=== PATIENT | male | born 1945 | race Caucasian/White ===

== ENCOUNTER → 2018-01-20 09:16 | Outpatient (CLI) | payer MEDICARE, SELFPAY ==
[2018-01-20 10:19] LABS: Alanine Aminotransferase 29 U/L (12-78); Albumin Level 3.7 gm/dL (3.4-5.0); Albumin/Globulin Ratio 0.9 (1.1-1.8); Alkaline Phosphatase 116 U/L (46-116); Anion Gap 7.1 mEq/L (5-15); Aspartate Amino Transferase 13 U/L (15-37); Bilirubin,Total 0.6 mg/dL (0.2-1.0); Blood Urea Nitrogen 19 mg/dL (7-18); Carbon Dioxide 30 mmol/L (21.0-32.0); Chloride 102 mmol/L (98-107); Cholesterol 161 mg/dL (140-200); Creatinine,Serum 1.11 mg/dL (0.70-1.30); Estimated Glomerular Filt Rate 65 ml/min (>60); GFR (African American) 79 ML/MIN (>60); Globulin 4.2 gm/dl (1.3-3.2); Glucose 85 mg/dL (74-106); HDL Cholesterol 40 mg/dL (27-67); Iron 75 ug/dl (28-170); LDL Cholesterol 100 mg/dL (0-130); Potassium 4.1 mmoL/L (3.5-5.1); Prostate Specific Ag Screen 4.2 ng/mL (0.0-4.0); Sodium 135 mmol/L (136-145); Total Protein,Serum 7.9 gm/dL (6.4-8.2); Triglycerides 105 mg/dL (30-200); VLDL Cholesterol 21 mg/dL (0-40)
[2018-01-20 10:25] LABS: Basophils # 0.1 K/mm3 (0-0.2); Eosinophils # 0.3 K/mm3 (0.0-0.4); Eosinophils % 4.1 % (0.1-12.0); Hematocrit 49.4 % (42.0-52.0); Hemoglobin 16.6 g/dL (14.1-18.0); Lymphocytes # 1.8 K/mm3 (0.7-4.5); Lymphocytes % 27.2 K/mm3 (10-50); Mean Corpuscular HGB Conc 33.6 g/dL (31.8-35.4); Mean Corpuscular Hemoglobin 29.9 pg (27.0-31.2); Mean Platelet Volume 8.8 fl (7.4-10.4); Monocytes # 0.4 K/mm3 (0.1-1.0); Monocytes % 5.7 % (1.7-9.3); Neutrophils % 61.9 % (37.0-80.0); Platelet Count 245 K/mm3 (142-424); Red Blood Count 5.55 M/mm3 (4.60-6.20); Red Cell Distribution Width 13.2 % (11.5-17.5); White Blood Count 6.5 K/mm3 (4.8-10.8)
[2018-01-21 13:40] LABS: Hemoglobin A1C 7.2 % (0.0-7.0)
== END ==
PROVIDERS: Visit Provider Family Medicine
DX: Z12.5 Encounter for screening for malignant neoplasm of prostate (principal); E11.9 Type 2 diabetes mellitus without complications; E78.5 Hyperlipidemia, unspecified; D64.9 Anemia, unspecified
CPT/HCPCS: 36415; 80053; 80061; 83036; 83540; 83735; 85025; G0103

== ENCOUNTER → 2018-09-18 08:31 | Outpatient (CLI) | payer MEDICARE, SELFPAY ==
[2018-09-18 09:08] LABS: Basophils % 0.7 % (0.1-2.0); Eosinophils # 0.3 K/mm3 (0.0-0.4); Eosinophils % 4.6 % (0.1-12.0); Hematocrit 44.4 % (42.0-52.0); Hemoglobin 14.9 g/dL (14.1-18.0); Lymphocytes # 1.7 K/mm3 (0.7-4.5); Lymphocytes % 28.2 K/mm3 (10-50); Mean Corpuscular HGB Conc 33.6 g/dL (31.8-35.4); Mean Corpuscular Hemoglobin 29.3 pg (27.0-31.2); Mean Corpuscular Volume 87.1 fl (80-94); Mean Platelet Volume 7.9 fl (7.4-10.4); Monocytes # 0.3 K/mm3 (0.1-1.0); Monocytes % 5.6 % (1.7-9.3); Neutrophils # 3.7 K/mm3 (1.8-7.8); Neutrophils % 60.8 % (37.0-80.0); Platelet Count 224 K/mm3 (142-424); Red Cell Distribution Width 13.5 % (11.5-17.5); White Blood Count 6.1 K/mm3 (4.8-10.8)
[2018-09-18 09:14] LABS: Hemoglobin A1C 7.5 % (0.0-7.0)
[2018-09-18 09:59] LABS: Alanine Aminotransferase 23 U/L (12-78); Albumin Level 3.6 gm/dL (3.4-5.0); Alkaline Phosphatase 107 U/L (46-116); Anion Gap 10.2 mEq/L (5-15); Aspartate Amino Transferase 14 U/L (15-37); Bilirubin,Total 0.7 mg/dL (0.2-1.0); Blood Urea Nitrogen 16 mg/dL (7-18); Calcium 9.1 mg/dL (8.5-10.1); Carbon Dioxide 32 mmol/L (21.0-32.0); Chloride 105 mmol/L (98-107); Chol/HDL Ratio 3.8 (1-3.5); Cholesterol 150 mg/dL (140-200); Creatinine,Serum 0.86 mg/dL (0.70-1.30); Estimated Glomerular Filt Rate 87 ml/min (>60); GFR (African American) 105 ML/MIN (>60); Globulin 3.5 gm/dl (1.3-3.2); Glucose 72 mg/dL (74-106); HDL Cholesterol 39 mg/dL (27-67); Iron 82 ug/dl (28-170); LDL Cholesterol 95 mg/dL (0-130); Potassium 4.2 mmoL/L (3.5-5.1); Sodium 143 mmol/L (136-145); Total Protein,Serum 7.1 gm/dL (6.4-8.2); Triglycerides 80 mg/dL (30-200); VLDL Cholesterol 16 mg/dL (0-40)
== END ==
PROVIDERS: Visit Provider Family Medicine
DX: E11.9 Type 2 diabetes mellitus without complications (principal); E78.5 Hyperlipidemia, unspecified; I10 Essential (primary) hypertension; K51.90 Ulcerative colitis, unspecified, without complications
CPT/HCPCS: 36415; 80053; 80061; 83036; 83540; 83735; 85025

== ENCOUNTER → 2020-06-23 08:30 | Outpatient (CLI) | payer MEDICARE, SELFPAY ==
[2020-06-23 08:51] LABS: Basophils # 0.1 K/mm3 (0-0.2); Basophils % 0.8 % (0.1-2.0); Eosinophils # 0.3 K/mm3 (0.0-0.4); Eosinophils % 4.8 % (0.1-12.0); Hematocrit 42.9 % (42.0-52.0); Hemoglobin 15.1 g/dL (14.1-18.0); Lymphocytes # 2.2 K/mm3 (0.7-4.5); Mean Corpuscular HGB Conc 35.2 g/dL (31.8-35.4); Mean Corpuscular Hemoglobin 30.8 pg (27.0-31.2); Mean Corpuscular Volume 87.5 fl (80-94); Mean Platelet Volume 8.4 fl (7.4-10.4); Monocytes # 0.4 K/mm3 (0.1-1.0); Monocytes % 5.7 % (1.7-9.3); Neutrophils % 57.6 % (37.0-80.0); Platelet Count 212 K/mm3 (142-424); Red Cell Distribution Width 13.4 % (11.5-17.5); White Blood Count 6.9 K/mm3 (4.8-10.8)
[2020-06-23 09:15] LABS: Hemoglobin A1C 7.5 % (4.0-6.0)
[2020-06-23 09:36] LABS: Alanine Aminotransferase 17 U/L (12-78); Albumin Level 3.9 g/dl (3.5-5.0); Albumin/Globulin Ratio 1.2 (1.1-1.8); Alkaline Phosphatase 105 U/L (38-126); Anion Gap 15.1 mEq/L (5-15); Aspartate Amino Transferase 21 U/L (17-59); Bilirubin,Total 0.9 mg/dl (0.2-1.3); Blood Urea Nitrogen 15 mg/dl (9-20); Calcium 9.4 mg/dl (8.4-10.2); Carbon Dioxide 26 mmol/L (22.0-30.0); Chloride 102 mmol/L (98-107); Chol/HDL Ratio 4.5 (1-3.5); Cholesterol 168 mg/dl (140-200); Estimated Glomerular Filt Rate 82 ml/min (>60); GFR (African American) 99 ML/MIN (>60); Globulin 3.2 g/dL (1.3-3.2); Glucose 86 mg/dl (74-100); HDL Cholesterol 37 mg/dl (40-60); Iron 79 ug/dL (49-181); Magnesium 1.9 mg/dl (1.6-2.3); Potassium 4.1 mmoL/L (3.5-5.1); Sodium 139 mmol/L (136-145); Total Protein,Serum 7.1 g/dl (6.3-8.2); Triglycerides 122 mg/dl (30-150); VLDL Cholesterol 24 mg/dL (0-40)
[2020-06-23 10:06] LABS: Prostate Specific Ag Screen 4.2 ng/ml (0.0-4.0)
== END ==
PROVIDERS: Visit Provider Family Medicine
DX: D64.9 Anemia, unspecified (principal); I10 Essential (primary) hypertension; E78.5 Hyperlipidemia, unspecified; E11.9 Type 2 diabetes mellitus without complications; Z12.5 Encounter for screening for malignant neoplasm of prostate; Z79.4 Long term (current) use of insulin
CPT/HCPCS: 36415; 80053; 80061; 83036; 83540; 83735; 85025; G0103

== ENCOUNTER → 2020-08-22 10:47 | Outpatient (POV) | payer MEDICARE, SELFPAY ==
[2020-08-22 13:14] LABS: Basophils # 0.1 K/mm3 (0-0.2); Eosinophils # 0.2 K/mm3 (0.0-0.4); Eosinophils % 2.8 % (0.1-12.0); Hematocrit 47.9 % (42.0-52.0); Hemoglobin 16.5 g/dL (14.1-18.0); Lymphocytes % 28.7 % (10-50); Mean Corpuscular HGB Conc 34.5 g/dL (31.8-35.4); Mean Corpuscular Hemoglobin 30.6 pg (27.0-31.2); Mean Corpuscular Volume 88.7 fl (80-94); Mean Platelet Volume 8.4 fl (7.4-10.4); Monocytes # 0.5 K/mm3 (0.1-1.0); Monocytes % 6.9 % (1.7-9.3); Neutrophils # 4.3 K/mm3 (1.8-7.8); Neutrophils % 60.5 % (37.0-80.0); Platelet Count 237 K/mm3 (142-424); Red Cell Distribution Width 13.4 % (11.5-17.5)
[2020-08-22 13:36] LABS: Erythrocyte Sedimentation Rate 11 mm/hr (0-20)
[2020-08-22 14:38] LABS: Alanine Aminotransferase 24 U/L (12-78); Albumin Level 4.5 g/dl (3.5-5.0); Albumin/Globulin Ratio 1.4 (1.1-1.8); Alkaline Phosphatase 114 U/L (38-126); Anion Gap 13.8 mEq/L (5-15); Aspartate Amino Transferase 24 U/L (17-59); Bilirubin,Total 1.1 mg/dl (0.2-1.3); Blood Urea Nitrogen 14 mg/dl (9-20); Calcium 10.2 mg/dl (8.4-10.2); Carbon Dioxide 30 mmol/L (22.0-30.0); Chloride 102 mmol/L (98-107); Estimated Glomerular Filt Rate 82 ml/min (>60); GFR (African American) 99 ML/MIN (>60); Globulin 3.3 g/dL (1.3-3.2); Glucose 64 mg/dl (74-100); Potassium 4.8 mmoL/L (3.5-5.1); Sodium 141 mmol/L (136-145); Total Protein,Serum 7.8 g/dl (6.3-8.2)
[2020-08-22 14:44] LABS: C-Reactive Protein 3.2 mg/L (0-4)
[2020-08-22 14:55] LABS: 25-OH Vitamin D, Total 32.3 ng/mL (30-100)
[2020-08-22 15:29] LABS: Vitamin B12 280 pg/mL (239-931)
[2020-08-22 17:07] LABS: Iron 87 ug/dL (49-181)
[2020-08-22 17:16] LABS: Total Iron Binding Capacity 360 ug/dL (261-462)
[2020-08-22 17:43] LABS: Ferritin 101 ng/ml (17.9-464)
== END ==
PROVIDERS: Visit Provider Nurse Practitioner Family
DX: K51.90 Ulcerative colitis, unspecified, without complications (principal)
CPT/HCPCS: 36415; 80053; 82306; 82607; 82728; 83540; 83550; 85025; 85651; 86140

== ENCOUNTER → 2020-09-17 07:45 | Outpatient (CLI) | payer MEDICARE, SELFPAY ==
[2020-09-17 09:13] LABS: Coronavirus 19 IgG Antibody Negative (Negative); Coronavirus 19 IgM Antibody Negative (Negative)
== END ==
PROVIDERS: Visit Provider Internal Medicine Gastroenterology
DX: Z01.818 Encounter for other preprocedural examination (principal)
CPT/HCPCS: 36415; 86328

== ENCOUNTER 2020-09-19 08:48 | Day surgery (SDC) | payer MEDICARE, SELFPAY ==
[2020-09-15 10:24] VITALS: BMI 31.1
[2020-09-19 09:08] VITALS: BP 206/94; PULSE 80; RESP 18; TEMP 36.4; O2SAT 97
[2020-09-19 09:21] LABS: POC Glucose,Bedside 159 (70-110)
--- NOTE | 2020-09-19 09:37 | P.PN_ITS ---
[facility] Anesthesia Checklist - Patient Identification Patient Identification: Arm Band - Structural Data Admitted From: Home Planned Operative Procedure/s: flexible sigmoidoscopy Consent for Planned Operative Procedure(s) Verified: Yes Verified Documents: Surgical Consent, History and Physical - NPO Status Verified Time NPO: 00:00 - Additional verifications Anesthesia Reactions: No - Airway Assessment C-Spine Mobility Assessed: Yes (mp2) TMJ Mobility Assessed: Yes Dentition: Good Dentition - Neurological Assessment Level of Consciousness: Awake, Alert - Anesthesia Plan Anesthesia Risk discussed: Yes Anesthesia Plan: Verified ASA Class: III Anesthesia Type: MAC [facility] History I have reviewed the patient's past medical history: Yes Medical History: Reports:: Atrial Fibrillation, Cancer (prostate), Chronic Obstructive Pulmonary Disease (COPD), Diabetes Mellitus Type 2 (insulin dependant), Hypertension, Lung Disease (copd) Denies:: Diabetes Mellitus Type 1, Internal Pacemaker, MRSA, Seizures *Have you ever received a pneumonia vaccine?: Yes *Have you received a flu vaccine this season?: No Anesthesia experience/problems:: nac Laterality Cases: Bilateral: Cataract Other Surgeries: Yes: Colonoscopy, Other (Hemorrhoidectomy). No: Pacemaker Amputation: No Fractures: No - *Social History Last grade of school completed: Advanced degree Alcohol Intake: never Substance Use Type: denies use *Occupational Status:: retired Housing: house Household Members: spouse *Travel in the last 8 weeks: None Family Hx:: No significant family history
--- NOTE | 2020-09-19 09:57 | P.PCN_ITS ---
[facility] Procedure Note Procedure Note:: Flexible Sigmoidoscopy Procedure Report: Sigmoidoscopy with cold biopsies Endoscopist: Damian Rosas II, MD Referring physician: Nicholas Mathews MD Date of Procedure: September 19, 2020 Equipment: Olympus 180 variable stiffness pediatric colonoscope Sedation: MAC sedation Indication: Mr. Owusu is a 75-year-old gentleman with a history of ulcerative proctitis. He did undergo colonoscopy with la 2-1/2 years ago (February 2018) and was found to have moderate ulcerative proctitis involving the distal 3 cm of rectum. He used Canasa suppositories for about a month. The patient was on 1 capsule of Asacol daily for years. He took MiraLAX but stopped Konsyl. He was seen by Christine BRUNO on August 22, 2020. He was placed back on Konsyl and his symptoms have improved. He did have a hemorrhoidectomy in 2013 (Dr. Bennie Melton/colorectal surgery). The patient also had prostate biopsies and states that this resulted in a change in stool caliber. The patient has had some bloating and upper abdominal crampy discomfort in the right upper quadrant twice weekly. His bleeding and bowel function has improved with the addition of Konsyl bulk. Procedure: Prior to the procedure, a history and physical exam was performed, and patient's medications and allergies were reviewed. The risks, benefits and alternatives of the sedation and procedure were discussed with the patient. All questions were answered and informed consent was obtained. The patient was brought to the procedure room. Patient identification and proposed procedure were verified by the physician and the nurse. The patient was placed in a left lateral decubitus position and the scope was passed under direct vision. Throughout the procedure, the patient's blood pressure, pulse, and oxygen saturations were monitored continuously. The colonoscopy was accomplished without difficulty. The patient tolerated the procedure well. Findings: On digital rectal examination there was normal rectal tone. There were small tags. The scope was then inserted through the anal canal to the rectum and advanced to 30 cm. The preparation more proximally was poor with solid stools. Upon withdrawal there was evidence of mild chronic ulcerative proctitis involving the distal 3 to 4 cm of rectum. Cold biopsies were obtained. Impression: 1. Mild chronic ulcerative proctitis Plan: I will follow-up the biopsies. The patient has clinically improved with MiraLAX plus Konsyl. If his abdominal pain and bowel function remain persistent, I would recommend repeat colonoscopy. He did have 5 adenomatous polyps (serrated adenomas) in February 2018 and would be due for full screening/surveillance colonoscopy again in February 2021.
[2020-09-19 09:58] VITALS: BP 120/61; PULSE 61; RESP 12; TEMP 36.4; O2SAT 95
[2020-09-19 10:08] VITALS: BP 130/72; PULSE 68; RESP 16; O2SAT 93
[2020-09-19 10:18] VITALS: BP 144/77; PULSE 62; RESP 16; O2SAT 95
[2020-09-19 10:28] VITALS: BP 164/87; PULSE 63; RESP 16; TEMP 36.4; O2SAT 99
== END 2020-09-19 10:42 | disposition home or self-care (01) ==
LOC: OUTP 08:50
PROVIDERS: PCP Family Medicine; Visit Provider Internal Medicine Gastroenterology
PROC: 0DJD8ZZ Inspection of Lower Intestinal Tract, Via Natural or Artificial Opening Endoscopic (ICD-10-PCS; CPT 45330; principal; 2020-09-19 10:00)
DX: K51.20 Ulcerative (chronic) proctitis without complications; K62.1 Rectal polyp; Z87.19 Personal history of other diseases of the digestive system; I48.91 Unspecified atrial fibrillation; Z85.46 Personal history of malignant neoplasm of prostate; J44.9 Chronic obstructive pulmonary disease, unspecified; E11.9 Type 2 diabetes mellitus without complications; I10 Essential (primary) hypertension; Z79.4 Long term (current) use of insulin
CPT/HCPCS: 45331; 82962; 88305

== ENCOUNTER → 2021-03-24 14:10 | Outpatient (CLI) | payer MEDICARE, SELFPAY | PROVIDERS: Visit Provider Internal Medicine Gastroenterology | DX: Z01.812 Encounter for preprocedural laboratory examination (principal); Z20.822 Contact with and (suspected) exposure to COVID-19; Z12.11 Encounter for screening for malignant neoplasm of colon | CPT/HCPCS: U0003 ==

== ENCOUNTER 2021-03-27 07:17 | Day surgery (SDC) | payer MEDICARE, SELFPAY ==
[2021-03-21 13:42] VITALS: BMI 31.6
[2021-03-27] VITALS (8 sets, daily range): BP systolic 119–190; BP diastolic 62–92; PULSE 66–76; RESP 18–20; TEMP 36.4–36.6; O2SAT 95–98
--- NOTE | 2021-03-27 08:32 | P.PN_ITS ---
[facility] Anesthesia Checklist - Patient Identification Patient Identification: Arm Band - Structural Data Admitted From: Home Planned Operative Procedure/s: Colonoscopy Consent for Planned Operative Procedure(s) Verified: Yes - NPO Status Verified Time NPO: 00:00 - Additional verifications Anesthesia Reactions: No - Airway Assessment C-Spine Mobility Assessed: Yes TMJ Mobility Assessed: Yes Dentition: Good Dentition - Neurological Assessment Level of Consciousness: Awake, Alert Hx Seizures: No Numbness or tingling in extremities: No - Anesthesia Plan Anesthesia Risk discussed: Yes Anesthesia Plan: Verified ASA Class: III Anesthesia Type: MAC [facility] History I have reviewed the patient's past medical history: Yes Medical History: Reports:: Atrial Fibrillation, Cancer (prostate), Chronic Obstructive Pulmonary Disease (COPD), Diabetes Mellitus Type 2, Hyperlipidemia, Hypertension, Lung Disease (copd) Denies:: Diabetes Mellitus Type 1, Internal Pacemaker, MRSA, Seizures *Have you ever received a pneumonia vaccine?: Yes *Have you received a flu vaccine this season?: Yes Anesthesia experience/problems:: None Other Surgeries: Yes: Colonoscopy, Other (Hemorrhoidectomy). No: Pacemaker Amputation: No Fractures: No - *Social History Smoking Status: Never smoker Alcohol Intake: never Substance Use Type: denies use *Occupational Status:: retired Housing: house Household Members: spouse *Travel in the last 8 weeks: None Family Hx:: Unable to obtain
--- NOTE | 2021-03-27 08:41 | HMH.PROC ---
[facility] Procedure Note Procedure Note:: Colonoscopy Procedure Report: Colonoscopy Endoscopist: Damian Rosas II, MD Referring physician: Nicholas Mathews MD Date of Procedure: March 27, 2021 Equipment: Olympus 190 variable stiffness pediatric colonoscope Sedation: MAC sedation Indication: Mr. Owusu is a 75-year-old gentleman who is here for follow-up surveillance colonoscopy. He does have a history of ulcerative colitis diagnosed by me 18 to 20 years ago. His last colonoscopy with ct in February 2018 showed moderate ulcerative proctitis involving the distal 3 cm of rectum. He also has obstipation and does take MiraLAX plus Konsyl mixed together daily. He did have a hemorrhoidectomy in 2013 (Dr. Bennie Melton?colorectal surgery). He had a sigmoidoscopy in September 2020 showing mild chronic ulcerative proctitis of the distal 3 to 4 cm. Procedure: Prior to the procedure, a history and physical exam was performed, and patient's medications and allergies were reviewed. The risks, benefits and alternatives of the sedation and procedure were discussed with the patient. All questions were answered and informed consent was obtained. The patient was brought to the procedure room. Patient identification and proposed procedure were verified by the physician and the nurse. The patient was placed in a left lateral decubitus position and the scope was passed under direct vision. Throughout the procedure, the patient's blood pressure, pulse, and oxygen saturations were monitored continuously. The colonoscopy was accomplished without difficulty. The patient tolerated the procedure well. Findings: On digital rectal examination there was normal to increased rectal tone. There were small external tags. There were no external hemorrhoids. The prostate was 2-3+ with a firm nodule in the midline margin. The colonoscope was introduced through the anal canal to the rectum and advanced to the mid ascending colon. The preparation was fairly poor with a marked amount of yellowish-brown liquid stool and some residue. Upon withdrawal, approximately 75% of the colonic mucosa could be visualized. The remaining ascending, transverse, descending and sigmoid colon were normal with no polyps or other evidence of colitis or diverticulosis. There were no mucosal abnormalities identified. Upon retroflexion within the rectum, there was complete remission of the proctitis and there were grade 1-2 internal hemorrhoids.The preparation was fair to poor throughout with [place] Preparation Score of 5 out of 9. The cecal time was 10 minutes. Impression: 1. Normal colonoscopy (to mid ascending colon) with complete remission of the ulcerative proctitis 2. Fair to poor bowel preparation 3. Prostate nodule Plan: I will discuss the findings with the patient and family. We will need to determine whether further surveillance is warranted based upon age and general health. I would encourage continuation of the fiber bowel regimen (combined MiraLAX plus Konsyl mixed together p.o. every morning. I am not convinced that he will require any further maintenance mesalamine or Canasa.
--- NOTE | 2021-03-27 09:54 | SUR.PHASEII ---
0955- Dr Rosas at bedside talking to pt and
--- NOTE | 2021-03-27 09:55 | SUR.PHASEII ---
0955- Lab at bedside drawing PSA lab
[2021-03-27 10:42] LABS: POC Glucose,Bedside 138 (70-110)
== END 2021-03-27 10:00 | disposition home or self-care (01) ==
LOC: OUTP 07:18
PROVIDERS: PCP Family Medicine; Visit Provider Internal Medicine Gastroenterology
PROC: 0DJD8ZZ Inspection of Lower Intestinal Tract, Via Natural or Artificial Opening Endoscopic (ICD-10-PCS; CPT 45378; principal; 2021-03-27 08:30)
DX: Z12.11 Encounter for screening for malignant neoplasm of colon (principal); Z87.19 Personal history of other diseases of the digestive system; N40.0 Benign prostatic hyperplasia without lower urinary tract symptoms; Z85.46 Personal history of malignant neoplasm of prostate; I48.91 Unspecified atrial fibrillation; J44.9 Chronic obstructive pulmonary disease, unspecified; E11.9 Type 2 diabetes mellitus without complications; E78.5 Hyperlipidemia, unspecified; I10 Essential (primary) hypertension; Z79.4 Long term (current) use of insulin; Z79.899 Other long term (current) drug therapy
CPT/HCPCS: G0105; 36415; 82962; 84153

== ENCOUNTER → 2021-09-21 08:19 | Outpatient (CLI) | payer MEDICARE, SELFPAY ==
[2021-09-21 09:53] LABS: Thyroid Stimulating Hormone 3.75 uIU/mL (0.465-4.68)
[2021-09-22 12:16] LABS: Rapid Plasma Reagin Ab Titer Non Reactive (NonRea<1:1)
[2021-12-19 17:00] LABS: Antinuclear Antibodies (ANA) N
== END ==
PROVIDERS: Visit Provider Specialist
DX: R13.10 Dysphagia, unspecified (principal); G93.40 Encephalopathy, unspecified; R41.3 Other amnesia
CPT/HCPCS: 36415; 84439; 84443; 86038; 86225; 86235; 86592

== ENCOUNTER → 2021-09-26 12:57 | Outpatient (CLI) | payer MEDICARE, SELFPAY ==
--- NOTE | 2021-09-26 12:58 | FL_ITS ---
PROCEDURE: FL BARIUM SWALLOW MODIFIED CLINICAL INDICATION: dyphagia COMPARISON: No exams were available for comparison TECHNIQUE: Patient administered varying consistencies of barium contrast, while viewed in lateral position under real-time fluoroscopy with cine recording. FLUOROSCOPY TIME:1.22 minutes The study was performed in conjunction with speech pathologist. Please see that report & recommendations. FINDINGS: Patient was given varying consistencies of barium. Initially there was no aspiration or penetration with thin liquids. The patient then swallowed a large bolus of thin liquids were there was mild tracheal aspiration with cough reflex noted. Repeat swallow performed with chin tuck showing no evidence of aspiration. Other consistencies swallowed without difficulty.. IMPRESSION: Mild aspiration with large volume of thin liquids which improved with chin tuck technique. Please see speech pathologist report and recommendations. Dictated by: Man Rothman MD 09/27/2021 10:30 Man Rothman MD in OV 09/27/2021 10:30
--- NOTE | 2021-09-26 13:45 | HMH.SLMBS2 ---
Speech & Language Evaluation Speech/Language Mod Barium Swallow Start: 09/26/21 13:31 Freq: once Status: Complete Protocol: Document 09/26/21 13:31 VLAD (Rec: 09/26/21 13:45 VLAD [id number]) General Information General Current Food Consistancy Regular,Thin Liquids Dentition Good Dentition Oxygen Status Room Air Patient Orientation Person,Place Ability to Follow Directions Excellent Communication Ability No Impairment MBS Recommendations Diet Dietary Recommendations Regular,Thin Liquids Treatment/Strategies Treatment Recommendation Compens. Strategy Educat. Strategy/Precaution Recommend Sitting Upright (90 deg),Chin Tuck,Small Bites and Sips, Alternate Liquids/Solids Mod Barium Swallow Impressions Summary and Impressions Oral Phase Impression No Impairment (WFL) Oral Phase Summary Mr. Owusu was given the following consistencies: thins via straw and open cup, pudding, regular, and pill with thin wash. No oral phase impairments noted during evaluation. Pharyngeal Phase Impression Mild Impairment Pharyngeal Phase Summary Mr. Owusu did have a moment of small aspiration on an extremely large bolus of thin liquids. Implemented a chin tuck compensatory strategy along with small sips which improved the swallow. At this time, it is recommended he remain on current diet of regular diet with thin liquids using compensatory strategies of chin tuck and small bites/ small sips. Evaluation results reviewed with . Therapy is not warranted at this time. Speech/Language MBS Assessment/Goals/Plan Assessment Date of Evaluation: 09/26/21 Evaluation Type Initial Certification Assessment/Problems Dysphagia Does Patient Qualify for Service No Qualify/Failure Comment Compensatory strategies put in place. Recommendations PHYSICIAN CERTIFICATION: The specified therapy services are required, authorized, and reviewed every 30 days. SL Swallow Guidelines Standard Aspiration Prec. Dysphagia Swallow Precautions/Strategies Sitting Upright (90 deg),Chin Tuck,Small Bites and Sips,
== END ==
PROVIDERS: PCP Family Medicine; Visit Provider Specialist
DX: G47.33 Obstructive sleep apnea (adult) (pediatric) (principal); R13.10 Dysphagia, unspecified; R25.1 Tremor, unspecified; R41.3 Other amnesia
CPT/HCPCS: 70371; 92611

== ENCOUNTER → 2021-09-28 15:59 | Outpatient (CLI) | payer MEDICARE, SELFPAY ==
--- NOTE | 2021-09-28 15:59 | MR_ITS ---
PROCEDURE INFORMATION: Exam: MR Head Without Contrast Exam date and time: 09/28/2021 3:59 PM Age: 76 years old Clinical indication: Pain; Headache; Additional info: Memory loss, tremor. Tremor, memory loss 1.5yrs. No injury or trauma. No prior. TECHNIQUE: Imaging protocol: MR of the head without contrast. COMPARISON: RF FL BARIUM SWALLOW MODIFIED 09/26/2021 1:20 PM FINDINGS: Brain: No bleed, mass, or shift of structures. Basilar cisterns are normal. No diffusion restricted segments. Pre-pontine region, suprasellar region, and cerebellar angles are normal. No acute intracranial process. Brain is atrophic. Altered/abnormal areas of signal intensity within the periventricular white matter likely the radiographic manifestation of small vessel ischemic disease. Cerebral ventricles: Normal. No ventriculomegaly. Pituitary gland and sella: Sella normal. Bones/joints: Clivus normal. Calvarium is normal marrow signal. Paranasal sinuses: Normal as visualized. No acute sinusitis. Mastoid air cells: Normal as visualized. No mastoid effusion. Orbital cavity: Unremarkable. Soft tissues: Soft tissues are unremarkable Other findings: Diploe is normal. Tectum normal. IMPRESSION: 1. No acute intracranial process. 2. Brain is atrophic. 3. Altered/abnormal areas of signal intensity within the periventricular white matter likely the radiographic manifestation of small vessel ischemic disease.
== END ==
PROVIDERS: PCP Family Medicine; Visit Provider Specialist
DX: G47.33 Obstructive sleep apnea (adult) (pediatric) (principal); R13.10 Dysphagia, unspecified; R25.1 Tremor, unspecified; R41.3 Other amnesia
CPT/HCPCS: 70551

== ENCOUNTER → 2021-10-05 14:27 | Outpatient (CLI) | payer MEDICARE, SELFPAY | PROVIDERS: PCP Family Medicine; Visit Provider Specialist | DX: G47.33 Obstructive sleep apnea (adult) (pediatric) (principal); R13.10 Dysphagia, unspecified; R25.1 Tremor, unspecified; R41.3 Other amnesia | CPT/HCPCS: 94762 ==

== ENCOUNTER → 2022-04-11 08:26 | Outpatient (CLI) | payer MEDICARE, SELFPAY ==
[2022-04-11 09:26] LABS: Alanine Aminotransferase 7 U/L (12-78); Albumin Level 3.8 g/dl (3.5-5.0); Albumin/Globulin Ratio 1.4 (1.1-1.8); Alkaline Phosphatase 102 U/L (38-126); Anion Gap 11.4 mEq/L (5-15); Aspartate Amino Transferase 17 U/L (17-59); Bilirubin,Total 0.4 mg/dl (0.2-1.3); Blood Urea Nitrogen 21 mg/dl (9-20); Calcium 9.7 mg/dl (8.4-10.2); Carbon Dioxide 29 mmol/L (22.0-30.0); Chloride 102 mmol/L (98-107); Chol/HDL Ratio 2.4 (1-3.5); Cholesterol 120 mg/dl (140-200); Estimated Glomerular Filt Rate 94 ml/min (>60); GFR (African American) 113 ML/MIN (>60); Globulin 2.8 g/dL (1.3-3.2); Glucose 147 mg/dl (74-100); HDL Cholesterol 49 mg/dl (40-60); Magnesium 1.7 mg/dl (1.6-2.3); Potassium 4.4 mmoL/L (3.5-5.1); Sodium 138 mmol/L (136-145); Total Protein,Serum 6.6 g/dl (6.3-8.2); Triglycerides 39 mg/dl (30-150); VLDL Cholesterol 8 mg/dL (0-40)
[2022-04-11 09:36] LABS: Direct LDL Cholesterol 57.61 mg/dL (100-129)
[2022-04-11 09:56] LABS: Prostate Specific Ag Screen < 0.1 ng/ml (0.0-4.0)
[2022-04-11 11:08] LABS: Hemoglobin A1C 9.2 % (4.0-6.0)
== END ==
PROVIDERS: Visit Provider Family Medicine
DX: E11.9 Type 2 diabetes mellitus without complications (principal); E78.5 Hyperlipidemia, unspecified; E53.8 Deficiency of other specified B group vitamins; Z12.5 Encounter for screening for malignant neoplasm of prostate; Z79.4 Long term (current) use of insulin
CPT/HCPCS: 36415; 80053; 80061; 83036; 83735; G0103

== ENCOUNTER 2022-07-04 09:00 | Outpatient (RCR) | payer MEDICARE, SELFPAY ==
--- NOTE | 2022-06-06 09:07 | HMH.PTOPEV ---
PT Outpatient Evaluation Rehab PT Outpatient Evaluation Start: 06/06/22 08:01 Freq: Status: Active Protocol: Document 06/06/22 08:44 ERMA (Rec: 06/06/22 09:06 ERMA [id number]) Electronically Signed By Shekhar Hobbs, PRITESH 06/06/22 08:44 Outpatient Therapy Subjective History Subjective History This is the initial Physical Therapy evaluation for Johnny Scruggs. Pt is a 76 y/o male referred to PT for c/o balance disorder. Pt has been diagnosed with Lewy-body disorder, Parkinsonian disorder and small vessel ischemic disorder. Pt had radical prstectomy in 2020 and had severe difficulty and confusion after surgery. Pt had HHPT and HHOT to help improve function. Pt reports to therapy with complaints of gait disturbances and balance issues. Chief Complaint Other Symptom Type Other Symptoms Relieved By Nothing Symptoms Aggravated By Bending/Stooping,Physical Activity,Walking Prior Functional Limitations None Current Functional Limitations Housework,Recreation Activity, Walking,Stairs,Balance,Bending /Stooping Symptom Description Constant and Continuous Balance Eval Hx of Falls Hx Falls Yes: last year Number in last 6 months 4 Gait/Posture Asssessment General Gait Observation Ataxic Gait,Shuffling Step, Decrease Stride Lngth (R), Decrease Stride Lngth (L) Assistive Devices None / NA Level of Transfer Assist Standby Assistance,Assistance x1 Hip Observation in Gait Swing Decreased Flexion Hip Observation in Gait Stance Externally Rotated Ankle/Foot Observation in Gait Swing Decreased Foot Clearance Ankle/Foot Observation in Gait Stance Pronated,Flatfoot Contact Hip Posture Standing Position (L) Flexed,(R) Flexed,(L) Externally Rotated,(R) Externally Rotated Body Alignment Posture Rigid,Leaning,Thoracic Kyphosis,Forward Head Timed Up and Go Test 1. Is the Timed Up and Go test result > yes or = to 12 seconds? [place] Feet Together/Eyes open/Stable Surface pass Feet Together/Eyes Closed/Stable Surface pass Feet Together/Eyes op
== END 2022-07-04 09:05 | disposition home or self-care (01) ==
LOC: PT 09:00
PROVIDERS: PCP Family Medicine; Visit Provider Family Medicine
DX: R26.89 Other abnormalities of gait and mobility (principal); G20 Parkinson's disease
CPT/HCPCS: 97110; 97112; 97163; 97530

== ENCOUNTER 2022-07-04 10:00 | Outpatient (RCR) | payer MEDICARE, SELFPAY ==
--- NOTE | 2022-06-18 11:06 | HMH.SLAPHASI ---
Speech & Language Evaluation Speech/Language Aphasia Evaluation Start: 06/18/22 10:05 Freq: once Status: Complete Protocol: Document 06/18/22 10:05 SYDNIE (Rec: 06/18/22 11:06 SYDNIE [id number]) Aphasia Assessment/Goals/Plan Assessment Date of Evaluation: 06/18/22 Evaluation Type Initial Certification Assessment/Problems Lewy Bodies Dementia and Parkinson's Disease Does Patient Qualify for Service Yes Qualify/Failure Comment Based on preliminary cognitive /linguistic assessment pt qualifies for skilled ST services at this time. Plan Pt will be seen # times/week 2 for # weeks 12 Anticipate reaching STG in # weeks 8 Anticipate reaching LTG in # weeks 12 Pt/Guardian verbally ack understanding Yes of dx/prognosis/goals Pt/Guardian verbally ack understanding Yes of/consent to tx prog G -code Required No STG-Attending/Orientation/Memory Delayed Recall 80 Attention/Concentration 80 Memory Recall 80 STG-Comparative/Linguistic Skills Thought Organization 80 Categorization Ability 80 Aquatics Assistant Department Head Goals Increase cognitive skills to communicate Yes w/family & friends Education Instructions provided CLARIFYING PLANT OPERATOR reviewed the results of this preliminary assessment and recommendation for therapy with Mr. Owusu and his . Pt/Caregiver Able to Recall Information Able to recall/restate Reinforcement needed No Speech & Language HPI History Present Illness Description of Patient Problem dementia per MD order. Pt has a diagnosis of Lewy Bodies Dementia and Parkinson's disease. Pt/Caregiver Concerns Pt and his expressed concern for soft speech, inability to express wants and needs (word finding), short and long-term memory difficulties, some difficulty with reading/writing, hearing, drooling at meals, increased mealtime, and choking. Symptom Onset Date 08/18/21 Rehab Services Assessed Speech therapy Is this evaluation r/t stroke? No Language Eek Lang/Spoken in Home Icelandic Accent Affect Communication? No Education/Learning/Family Last School Grade Completed College Learning Method Preference One-on-One Instruction Therapy History O
== END 2022-07-04 11:00 | disposition home or self-care (01) ==
LOC: ST 10:00
PROVIDERS: PCP Family Medicine; Visit Provider Nurse Practitioner Psychiatric/Mental Health
DX: G31.83 Neurocognitive disorder with Lewy bodies (principal); F80.89 Other developmental disorders of speech and language
CPT/HCPCS: 92523; 97129; 97130

== ENCOUNTER 2022-07-07 20:38 | Inpatient (IN) | payer MEDICARE, SELFPAY ==
[2022-07-07 20:39] VITALS: BP 207/97; PULSE 92; RESP 16; TEMP 37.5; O2SAT 98; BMI 26.9
[2022-07-07 20:49] VITALS: BMI 26.9
--- NOTE | 2022-07-07 20:50 | XR_ITS ---
PROCEDURE INFORMATION: Exam: XR Chest Exam date and time: 07/07/22 09:10 PM Age: 77 years old Clinical indication: Fever TECHNIQUE: Imaging protocol: Radiologic exam of the chest. Views: 1 view. COMPARISON: RF FL BARIUM SWALLOW MODIFIED 09/26/21 01:20 PM FINDINGS: Lungs: Unremarkable. No consolidation. Pleural spaces: Unremarkable. No pleural effusion. No pneumothorax. Heart/Mediastinum: Unremarkable. No cardiomegaly. Bones/joints: Unremarkable. IMPRESSION: No acute findings.
[2022-07-07 21:05] LABS: Basophils # 0.1 K/mm3 (0-0.2); Basophils % 0.9 % (0.1-2.0); Eosinophils # 0.1 K/mm3 (0.0-0.4); Eosinophils % 1.6 % (0.1-12.0); Hematocrit 41.3 % (42.0-52.0); Hemoglobin 13.7 g/dL (14.1-18.0); Influenza A, PCR Not Detected (NotDetected); Influenza B, PCR Not Detected (NotDetected); Lymphocytes # 0.7 K/mm3 (0.7-4.5); Lymphocytes % 10.2 % (10-50); Mean Corpuscular Volume 90.8 fl (80-94); Mean Platelet Volume 8.9 fl (7.4-10.4); Monocytes # 0.5 K/mm3 (0.1-1.0); Neutrophils # 5.6 K/mm3 (1.8-7.8); Neutrophils % 80.3 % (37.0-80.0); Platelet Count 227 K/mm3 (142-424); Red Blood Count 4.55 M/mm3 (4.60-6.20); Red Cell Distribution Width 13.7 % (11.5-17.5)
[2022-07-07 21:14] LABS: Alanine Aminotransferase 8 U/L (12-78); Albumin Level 4.2 g/dl (3.5-5.0); Albumin/Globulin Ratio 1.3 (1.1-1.8); Alkaline Phosphatase 131 U/L (38-126); Anion Gap 9.2 mEq/L (5-15); Aspartate Amino Transferase 21 U/L (17-59); Bilirubin,Total 0.8 mg/dl (0.2-1.3); Blood Urea Nitrogen 17 mg/dl (9-20); Carbon Dioxide 28 mmol/L (22.0-30.0); Chloride 102 mmol/L (98-107); Creatinine Clearance Estimated 78 mL/min (50-200); Estimated Glomerular Filt Rate 93 ml/min (>60); GFR (African American) 113 ML/MIN (>60); Globulin 3.2 g/dL (1.3-3.2); Glucose 151 mg/dl (74-100); Lactic Acid 1.1 mmol/L (0.7-2.1); Potassium 4.2 mmoL/L (3.5-5.1); Sodium 135 mmol/L (136-145); Total Protein,Serum 7.4 g/dl (6.3-8.2)
[2022-07-07 21:19] LABS: C-Reactive Protein 14.8 mg/L (0-4)
[2022-07-07 21:30] LABS: Coronavirus 19, PCR Detected (NotDetected); Erythrocyte Sedimentation Rate 20 mm/hr (0-20)
[2022-07-07 21:32] LABS: Procalcitonin 0.102 ng/mL (0.0-2.0)
--- NOTE | 2022-07-07 21:53 | HMH.EDAMS ---
ED Disposition Clinical Impression: Acute delirium, COVID-19, SIRS (systemic inflammatory response syndrome) Disposition: Admitted As Inpatient Condition on Discharge: Fair Referrals: Garret Mathews MD [Primary Care Provider] - - Critical Care Critical Care Time: No Attestation: On 07/07/22, the high probability of a clinically significant, sudden or life threatening deterioration of the following system(s) required my full and direct attention, intervention and personal management. The time I documented below is in addition to time spent performing reported procedures but includes the following listed in this critical care notation. Medical Decision Making - Medical Records Medical records reviewed: Yes: I reviewed the patient's medical records. - Dinesh Inquiry Pt receiving controlled substance: No Vital Signs: 07/07/22 20:39 Temperature 99.5 F Temperature Source Oral Pulse Rate [Right] 92 H Respiratory Rate 16 Blood Pressure [Right Arm] 207/97 H Blood Pressure Mean [Right Arm] 133 02 Sat by Pulse Oximetry 98 - Lab Data Lab results reviewed: Yes: I reviewed the patient's lab results. Lab Results 07/07/22 21:00: WBC 7.0, RBC 4.55 L, Hgb 13.7 L, Hct 41.3 L, MCV 90.8, MCH 30.0, MCHC 33.0, RDW 13.7, Plt Count 227, MPV 8.9, Neut % (Auto) 80.3 H, Lymph % (Auto) 10.2, [place] % (Auto) 7.0, Eos % (Auto) 1.6, Baso % (Auto) 0.9, Neut # (Auto) 5.6, Lymph # (Auto) 0.7, [place] # (Auto) 0.5, Eos # (Auto) 0.1, Baso # (Auto) 0.1, ESR 20 07/07/22 21:00: Sodium 135 L, Potassium 4.2, Chloride 102, Carbon Dioxide 28, Anion Gap 9.2, BUN 17, Creatinine 0.80, Estimated Creat Clear 78, Estimated GFR 93, Est GFR ( Amer) 113, Glucose 151 H, Calcium 9.0, Total Bilirubin 0.8, AST 21, ALT 8 L, Alkaline Phosphatase 131 H, C-Reactive Protein 14.8 H, Total Protein 7.4, Albumin 4.2, Globulin 3.2, Albumin/Globulin Ratio 1.3, Procalcitonin 0.102 07/07/22 21:00: Lactate 1.1 07/07/22 21:00: SARS-CoV-2 (PCR) Detected A, Influenza A Untype (PCR) Not detected, Influenza Type B (PCR) Not detected 07/07/22 22:02: Urine Color Yellow, Urine Appearance Clear, Urine pH 6.0, Ur Specific [place] 1.025, Urine Protein Negative, Urine Glucose (UA) Negative, Urine Ketones 1+, Urine Blood Negative, Urine Nitrate Negative, Urine Bilirubin Negative, Urine Urobilinogen 1.0, Ur Leukocyte Esterase Negative, Urine RBC 3-5, Urine WBC Occasional Result diagrams: 07/07/22 21:00 07/07/22 21:00 Orders (Tests/Meds): ED MEDICATIONS Generic Name Dose Route Start Last Admin Trade Name Freq PRN Reason Stop Dose Admin Sodium Chloride 1,000 mls @ 999 mls/hr 07/07/22 21:00 07/07/22 20:58 Sod Chlor 0.9% 1000ml Bag IV 07/07/22 22:00 999 mls/hr .[id number] MICHELE Administration Discontinued Medications Generic Name Dose Route Start Last Admin Trade Name Freq PRN Reason Stop Dose Admin Acetaminophen 1,000 mg 07/07/22 20:52 07/07/22 20:59 Acetaminophen 500mg Tab PO 07/07/22 20:53 1,000 mg ONCE ONE Administration ORDERS Category Date Time Status Blood Culture Stat Micro 07/07/22 21:00 Received - Radiology Data #1 Image(s): Chest Image Reviewed: Yes I have reviewed radiologist's interpretation Preliminary Findings: Normal/NAD - Physician Consults Physician Consulted: ralf Reason -: Admission Medical Decision Narrative: has acute febrile illness with covid-19 with delerium - has co-morbid diabetes Altered Mental Status HPI - General Chief Complaint: Fever Stated Complaint: cough chills, disorientated Time Seen by Provider: 07/07/22 21:53 Mode of Arrival: Wheelchair Source of Information: Patient, Spouse, Medical Record Limitations: No Limitations Description of Symptoms (Recalled from ER Triage Doc. by RN): Pt's states pt has been running fever, dry hacky cough, sneezing and more weaker then normal - History of Present Illness HPI narrative: today with fever and cough and altered mental status - shaffer
[2022-07-07 22:00] VITALS: BP 192/91; PULSE 88; O2SAT 95
[2022-07-07 22:07] LABS: Appearance,Urine CLEAR (Clear); Bilirubin,Urine Negative (Negative); Blood, Urine Negative (Negative); Color,Urine YELLOW (Yellow); Glucose,Urine (UA) Negative (Negative); Ketones,Urine 1+ (Negative); Leukocyte Esterase,Urine Negative (Negative); Microscopic, Urine URINE MICROSCOPIC (MICROSCOPIC); Nitrate,Urine Negative (Negative); Protein,Urine Negative (Negative); Specific Gravity, Urine 1.025 (1.005-1.030)
[2022-07-07 22:09] LABS: WBC,Urine Occasional #/hpf (0-3)
[2022-07-07 22:30] VITALS: BP 187/83; PULSE 86; O2SAT 93
--- NOTE | 2022-07-07 22:39 | PC.NURSE ---
paged dr arambula @ this time
[2022-07-07 22:54] VITALS: BP 183/87; PULSE 86; RESP 18; TEMP 36.8; O2SAT 95; BMI 27.3
[2022-07-07 23:00] VITALS: BP 190/87; PULSE 92; O2SAT 93
[2022-07-07 23:12] VITALS: BP 190/87; PULSE 91; RESP 18; TEMP 37.2; O2SAT 95
--- NOTE | 2022-07-07 23:37 | PC.NURSE ---
patient up to floor via stretcher @ this time.
--- NOTE | 2022-07-08 03:56 | PC.NURSE ---
Pt admitted this shift for delirium and covid. Pt is alert and oriented x 2. Pt is pleasantly confused, cooperative. states at home pt is normally able to do most things for himself, but since he has been sick he has been weak and confused. Pt has an intermittent cough, lung sounds - diminished w/ expiratory wheezes. Pt is on RA w/ O2 sats > 90%. Pt is using urinal with assistance, with episodes of incontinence. IV infusing per order. No other complaints or needs voiced at this time. Call light in reach. Bed alarm on.
[2022-07-08 04:00] VITALS: BP 150/72; PULSE 86; RESP 17; TEMP 36.8; O2SAT 93
[2022-07-08 05:00] VITALS: BMI 27.2
[2022-07-08 06:15] LABS: POC Glucose,Bedside 276 (70-110)
[2022-07-08 07:58] VITALS: BP 184/90; PULSE 79; RESP 14; TEMP 36.9; O2SAT 96
--- NOTE | 2022-07-08 08:14 | P.CONPHA_ITS ---
[facility] VTE Monitoring - Patient Demographics Admission date: 07/08/22 Report Date: 07/08/22 Time: 08:14 Allergies/Adverse Reactions: Patient Allergies Sulfa (Sulfonamide Antibiotics) Allergy (Verified 07/07/22 23:10) Height: 1.83 m Weight: 91.308 kg Patient Problems: Current Active Problems Acute delirium (Acute) COVID-19 (Acute) SIRS (systemic inflammatory response syndrome) (Acute) - VTE Risk Labs: VTE Related Lab Results Hgb 13.7 g/dL (14.1-18.0) L 07/07/22 21:00 Hct 41.3 % (42.0-52.0) L 07/07/22 21:00 Plt Count 227 K/mm3 (142-424) 07/07/22 21:00 BUN 17 mg/dl (9-20) 07/07/22 21:00 Creatinine 0.80 mg/dl (0.66-1.25) 07/07/22 21:00 Estimated Creat Clear 78 mL/min (50-200) 07/07/22 21:00 VTE Risk Level: Low Risk - Prophylaxis Types of VTE Prophylaxis: Pharmacological (LOVENOX)
[2022-07-08 08:21] LABS: Basophils % 0.8 % (0.1-2.0); Eosinophils % 0.1 % (0.1-12.0); Hematocrit 40.3 % (42.0-52.0); Hemoglobin 13.1 g/dL (14.1-18.0); Lymphocytes # 0.3 K/mm3 (0.7-4.5); Lymphocytes % 8.6 % (10-50); Mean Corpuscular HGB Conc 32.6 g/dL (31.8-35.4); Mean Corpuscular Volume 92.1 fl (80-94); Mean Platelet Volume 9.2 fl (7.4-10.4); Monocytes # 0.1 K/mm3 (0.1-1.0); Monocytes % 3.8 % (1.7-9.3); Neutrophils # 3.2 K/mm3 (1.8-7.8); Neutrophils % 86.7 % (37.0-80.0); Platelet Count 231 K/mm3 (142-424); Red Blood Count 4.37 M/mm3 (4.60-6.20); Red Cell Distribution Width 13.8 % (11.5-17.5); White Blood Count 3.7 K/mm3 (4.8-10.8)
[2022-07-08 08:25] LABS: MANUAL DIFFERENTIAL MANUAL DIFFERENTIAL (MANUAL DIFF)
[2022-07-08 08:27] LABS: Blood Urea Nitrogen 15 mg/dl (9-20); Calcium 9.2 mg/dl (8.4-10.2); Carbon Dioxide 23 mmol/L (22.0-30.0); Chloride 103 mmol/L (98-107); Creatinine Clearance Estimated 79 mL/min (50-200); Estimated Glomerular Filt Rate 109 ml/min (>60); GFR (African American) 132 ML/MIN (>60); Glucose 261 mg/dl (74-100); Magnesium 1.5 mg/dl (1.6-2.3); Sodium 134 mmol/L (136-145)
[2022-07-08 08:51] LABS: Lymphocytes % 5 % (10-50); Monocytes % 1 % (2-9); Neutrophils % 93 % (42-76); Platelet Estimate Normal; RBC Morphology Normal; Total Cells Counted 100
--- NOTE | 2022-07-08 09:25 | HMH.HP ---
*Admission Date: 07/08/22 *Chief complaint: weak *History of present illness: Mr. Owusu began feeling bad yesterday morning with fatigue, weakness, congestion, and headache and then noted to have a fever. Symptoms worsened throughout the day to the point he was too weak to ambulate around the house and his could no longer care for him. At this point he was brought to the emergency room for further evaluation. On work-up in the ER, he was found to be COVID-positive. Laboratory data was otherwise nonrevealing and his chest x-ray he is clear.-Satisfactory ongoing care. He is diabetic and has a history of Parkinson's, obstructive sleep apnea, prostate cancer and Lewy body dementia. He is admitted for further evaluation and monitoring of his respiratory status. [facility] History Medical History: Reports:: Atrial Fibrillation (Intermittent atrial for been remote past), Cancer, Congestive Heart Failure, Chronic Obstructive Pulmonary Disease (COPD), Diabetes Mellitus Type 2, Gastroesophageal Reflux Disease(GERD), Hyperlipidemia, Hypertension Denies:: Internal Pacemaker, MRSA, Seizures *Have you ever received a pneumonia vaccine?: No *Have you received a flu vaccine this season?: No Other Medical History: Reports: Anemia, Cataracts, Other (Obstructive sleep apnea on CPAP) Laterality Cases: Bilateral: Cataract Other Surgeries: Yes: Cancer Surgery (Prostatectomy), Colonoscopy, Hernia Repair, Other (Hemorrhoidectomy). No: Pacemaker Amputation: No Fractures: No - *Social History Last grade of school completed: Advanced degree Smoking Status: Former smoker Alcohol Intake: never Substance Use Type: denies use *Occupational Status:: retired Housing: house Household Members: spouse *Travel in the last 8 weeks: None Family Hx:: Cancer, Coronary Artery Disease, Diabetes Review of Systems - Constitutional Reports fatigue, Reports fever(s), Reports lack of energy, Reports weakness - Eyes Denies blurry vision - ENT Reports nasal congestion, Denies abnormal hearing - *Cardiovascular Reports chest pain, Denies shortness of breath, Denies rapid, pounding, or irregular heartbeat - *Respiratory Reports cough, Denies coughing up blood - *Gastrointestinal Denies abdominal pain, Denies change in bowel habits, Denies constipation, Denies vomiting - *Genitourinary Denies difficulty urinating, Denies blood in urine - *Musculoskeletal Reports muscle weakness (Generalized), Denies joint pain, Denies joint swelling - Integumentary/Breasts Denies change in skin color, Denies rash - *Neurologic Reports confusion (Worse than baseline), Reports unsteadiness, Reports tremor(s) (Related to Parkinson's), Denies seizure-like activity - Psychiatric Reports sensing things others do not sense, Denies anxiety Meds Home Medications Medication Instructions Recorded Confirmed Type Ascorbic Acid [Vitamin C 500mg 500 mg PO BID 03/11/18 07/07/22 History tablet] Budesonide/Formoterol Fumarate 6 gm IH BID 03/11/18 07/07/22 History [Symbicort 160-4.5 Mcg Inhaler] Ferrous Sulfate [Ferrous Sulfate 325 mg PO BID 03/11/18 07/07/22 History 325mg Tablet] Fluticasone Propionate [Flonase 2 spr NS DAILY 03/11/18 07/07/22 History 50mcg nasal spray 16gm] Insulin Glargine,Hum.rec.anlog 40 unit SQ BID 03/11/18 07/07/22 History [Lantus Insulin 100units/mL 10mL vial] Irbesartan [Avapro 300mg tablet] 300 mg PO DAILY 03/11/18 07/07/22 History Linagliptin [Tradjenta] 5 mg PO DAILY 03/11/18 07/07/22 History Magnesium Oxide [Mag-Ox 400mg Tab] 400 mg PO BID 03/11/18 07/07/22 History Metformin HCl [Metformin HCl ER] 1,000 mg PO BID 03/11/18 07/07/22 History Omeprazole [Omeprazole 20mg 20 mg PO DAILY 03/11/18 07/07/22 History Capsule] polyethylene glycoL 3350 [Miralax 17 gm PO DAILY 03/11/18 07/07/22 History 17gm Packet] Carbidopa/Levodopa [Rytary] 1 cap PO TID 07/07/22 07/07/22 History risperiDONE [Risperidone] 0.25 mg PO DAILY 07/07/22 0
[2022-07-08 11:45] LABS: POC Glucose,Bedside 268 (70-110)
[2022-07-08 11:51] VITALS: BP 109/79; PULSE 87; RESP 16; TEMP 36.9; O2SAT 94
[2022-07-08 16:00] VITALS: BP 161/84; PULSE 62; RESP 15; TEMP 36.4; O2SAT 95
[2022-07-08 16:57] LABS: POC Glucose,Bedside 336 (70-110)
--- NOTE | 2022-07-08 18:02 | PC.NURSE ---
pt is alert but confused. states this is pt baseline except he is struggling with his ADLS. pt normally ambulates to br independently and is continent however he has been incontinent through out the shift. has been at bedside the majority of the shift. pt gets very agitated when his is not in the room. low grade temp upon admission but i gave him tylenol. He has a dry cough but has not produced any sputum @ this point.
[2022-07-08 19:49] VITALS: BP 193/86; PULSE 77; RESP 16; TEMP 37.1; O2SAT 99
[2022-07-08 21:12] LABS: POC Glucose,Bedside 287 (70-110)
[2022-07-09] VITALS: BP 176/70; PULSE 80; RESP 16; TEMP 36.9; O2SAT 96
[2022-07-09 04:00] VITALS: BP 170/83; PULSE 88; RESP 17; TEMP 36.8; O2SAT 93
[2022-07-09 05:00] VITALS: BMI 22.7
--- NOTE | 2022-07-09 05:00 | PC.NURSE ---
No acute changes since previous assessment. Pt a&o x 2, pleasantly confused. Pt sat up to chair for a while on hi. At bedtime assisted pt back to bed w/ x 2 assist. Pt has rested majority of the night. Pt is using urinal at times w/ assistance, but mostly incontinent. IV infusing per order. FSBS at bedtime was 287. Medicated per JAN. Pt remains on RA, tolerating well. Lungs - decreased w/ some expiratory wheezes. No needs voiced at this time. at bedside for pt safety and security. Call light in reach, bed alarm on.
[2022-07-09 06:13] LABS: POC Glucose,Bedside 218 (70-110)
[2022-07-09 06:58] LABS: Alanine Aminotransferase 8 U/L (12-78); Albumin Level 3.4 g/dl (3.5-5.0); Albumin/Globulin Ratio 1.2 (1.1-1.8); Alkaline Phosphatase 104 U/L (38-126); Anion Gap 9.2 mEq/L (5-15); Aspartate Amino Transferase 31 U/L (17-59); Bilirubin,Total 0.6 mg/dl (0.2-1.3); Blood Urea Nitrogen 17 mg/dl (9-20); Calcium 8.4 mg/dl (8.4-10.2); Carbon Dioxide 24 mmol/L (22.0-30.0); Chloride 101 mmol/L (98-107); Creatinine Clearance Estimated 66 mL/min (50-200); Estimated Glomerular Filt Rate 93 ml/min (>60); GFR (African American) 113 ML/MIN (>60); Globulin 2.8 g/dL (1.3-3.2); Glucose 232 mg/dl (74-100); Potassium 4.2 mmoL/L (3.5-5.1); Sodium 130 mmol/L (136-145); Total Protein,Serum 6.2 g/dl (6.3-8.2)
[2022-07-09 08:00] VITALS: BP 155/77; PULSE 76; RESP 16; TEMP 37.2; O2SAT 94
--- NOTE | 2022-07-09 08:28 | HMH.ACPN2 ---
<Anais Ruano - Last Filed: 07/09/22 08:28> Internal Medicine - PN: Subj *Date: 07/09/22 *Time: 08:28 Interval history: is at bedside and has stayed throughout the night. She states he was restless and confused at intervals. She also reports a persistent cough. He did sit up in the chair for about 7 hours yesterday. He was able to ambulate to the bathroom with assistance. He did eat satisfactory yesterday and just a few bites of breakfast this morning. He had periods of mumbling and now is sleeping. Laboratory data this morning shows low sodium at 130 with potassium of 4.2. Renal function is normal. White blood cell count of 3700 and a hemoglobin of 13.1 hematocrit of 40.3. Exam Vital signs and Labs for Last 24 Hours: Temp Pulse Resp BP Pulse Ox 99.0 F 76 16 155/77 H 94 L 07/09/22 08:00 07/09/22 08:00 07/09/22 08:00 07/09/22 08:00 07/09/22 08:00 Laboratory Results - last 24 hr 07/08/22 07:54: Total Counted 100, Neutrophils % (Manual) 93 H, Band Neutrophils % 1.0, Lymphocytes % (Manual) 5 L, Monocytes % (Manual) 1 L, Platelet Estimate Normal, RBC Morphology Normal 07/08/22 11:38: POC Glucose 268 H 07/08/22 16:50: POC Glucose 336 H* 07/08/22 20:36: POC Glucose 287 H 07/09/22 06:03: POC Glucose 218 H 07/09/22 06:29: Sodium 130 L, Potassium 4.2, Chloride 101, Carbon Dioxide 24, Anion Gap 9.2, BUN 17, Creatinine 0.80, Estimated Creat Clear 66, Estimated GFR 93, Est GFR ( Amer) 113, Glucose 232 H, Calcium 8.4, Total Bilirubin 0.6, AST 31 D, ALT 8 L, Alkaline Phosphatase 104, Total Protein 6.2 L, Albumin 3.4 L D, Globulin 2.8, Albumin/Globulin Ratio 1.2 I & O for Last 24 hours: Intake & Output 07/06/22 07/07/22 07/08/22 07/09/22 11:59 11:59 11:59 11:59 Intake Total 570 / 570 1260 / 1260 Output Total 300 / 300 275 / 275 Balance 270 / 270 985 / 985 Weight 201 lb 4.8 oz 167 lb 11.2 oz - Constitutional no acute distress Comments: Sleeping. Did not awaken him during assessment - *Routine Respiratory Exam Present: CTA bilaterally - *Routine Abdominal Exam Present: soft, normoactive bowel sounds. Absent: tenderness, distended - *Routine Extremities Exam Present: pulses intact. Absent: edema, calf tenderness - *Routine Neurological Exam Present: altered mental status Sleeps during assessment Assessment and Plan (1) COVID-19 Status: Acute Category: Medical Code(s): U07.1 - COVID-19 (2) Acute delirium Status: Acute Category: Medical Code(s): R41.0 - Disorientation, unspecified (3) Parkinsons disease Status: Acute Category: Medical Code(s): G20 - Parkinson's disease (4) Type 2 diabetes mellitus Status: Acute Category: Medical Code(s): E11.9 - Type 2 diabetes mellitus without complications (5) Hypertension Status: Acute Category: Medical Code(s): I10 - Essential (primary) hypertension (6) Lewy body dementia Status: Acute Category: Medical Code(s): G31.83 - Dementia with Lewy bodies; F02.80 - Dementia in other diseases classified elsewhere without behavioral disturbance (7) REGINO (obstructive sleep apnea) Status: Acute Category: Medical Code(s): G47.33 - Obstructive sleep apnea (adult) (pediatric) - Assessment and plan all Dx Assessment and Plan for all problems:: Continue with COVID protocol. Blood sugars being managed with sliding scale. <Garret Mathews - Last Filed: 07/09/22 18:37> Internal Medicine - PN: Subj *Date: 07/09/22 *Time: 08:25 Exam Vital signs and Labs for Last 24 Hours: Temp Pulse Resp BP Pulse Ox 98.6 F 74 15 142/83 H 97 07/09/22 15:36 07/09/22 15:36 07/09/22 15:36 07/09/22 15:36 07/09/22 15:36 Laboratory Results - last 24 hr 07/08/22 20:36: POC Glucose 287 H 07/09/22 06:03: POC Glucose 218 H 07/09/22 06:29: Sodium 130 L, Potassium 4.2, Chloride 101, Carbon Dioxide 24, Anion Gap 9.2, BUN 17, Creatinine 0.80, Estimated Creat Clear 66, Estimated GFR 93, Est
--- NOTE | 2022-07-09 09:15 | HMH.PTEV ---
Physical Therapy Evaluation Rehab PT IP Evaluation Start: 07/09/22 08:15 Freq: ONCE Status: Active Protocol: Document 07/09/22 09:10 PHORASHID (Rec: 07/09/22 09:15 PHORNE [id number]) Subjective/History History History 77 yowm adm to [facility] with AMS, fever, found to be COVID+. He has hx of parkinson's disease and lewy body dementia at baseline. Generally he is able to ambulate without assistance, lives with his , no steps to enter the home. Subjective Subjective Pt with continued AMS this am and having difficulty following commands. increased rigidity as well. Rehab PT IP Eval Objective Appearance Patient Behavior Appropriate,Confused Patient Orientation Person Difficulty following instructions moderate Speech Pattern Clear,Delayed Ambulation Patient Able to Ambulate Yes Ambulation Observation IP General Gait Pattern Observation Ataxic Gait,Shuffling Step Ambulation Distance (feet) 4 Ambulation Ability Maximum x 2 (75% assist) Balance Ability to Arise Able, uses arms to help Sitting Balance Leans or slides in chair Standing Balance Unsteady Dynamic Sitting Balance Ability Poor Dynamic Standing Balance Ability Poor Transfers Bed Transfer Ability Maximum x 1 (75% assist) Chair Transfer Ability Maximum x 2 (75% assist) Sit to Stand Bed Transfer Ability Maximum x 1 (75% assist) Sit to Stand Chair Transfer Ability Maximum x 1 (75% assist) Rehab PT IP prob,goals,plan Problems Date of Evaluation: 07/09/22 PT IP Problems Bed Mobility,Transfers,Gait, Balance,Self care,Safety Rehab Potential Rehab Potential Good Plan PT Intervention Plan Bed Mobility,Transfers,Gait, Balance,Self care,Safety, Therapeutic Exercise PT Plan Frequency BID Duration LOS Discharge Goals Bed Transfer Ability Moderate x 1 (50% assist) Sit to Stand Chair Transfer Ability Moderate x 1 (50% assist) Ambulation Assistive Device Rolling Walker Ambulation Distance (feet) 20 Discharge Plan PT Discharge Plan Pt is most appropriate for rehab placement at this time. G -code Required No Eval Complexity Eval Charge Codes 73266 - High Complexity
--- NOTE | 2022-07-09 10:23 | SW/DCPLANNER ---
Addendum entered by Wendi Cedeño 07/09/22 14:28: Laquita w/ [facility] can not accept this patient. I have discussed situation with and will follow up tomorrow. The plan will be for patient to discharge home with and home health services. DME will be set up at time of discharge if needed as well. Addendum entered by Wendi Cedeño 07/09/22 13:26: Cecilia w/ [facility] is not able to accept this patient at this time. [facility] is willing to review referral and patient information has been faxed. Other local and surrounding counties are not accepting COVID positive patient's at this time. Original Note: I spoke with this patient's (Becka) regarding plans once medically stable for discharge. Becka expressed an interest in rehab placement for this patient. PT evaluated this patient and recommended placement at this time. Becka is interested in local facilities but is understanding that due to patient being COVID positive we may have to search out of town. I will follow up with local and surrounding facilities regarding bed availability/COVID positive status.
[2022-07-09 11:48] VITALS: BP 156/82; PULSE 78; RESP 16; TEMP 37.6; O2SAT 95
[2022-07-09 12:34] LABS: POC Glucose,Bedside 257 (70-110)
[2022-07-09 13:39] VITALS: BMI 27.1
[2022-07-09 15:36] VITALS: BP 142/83; PULSE 74; RESP 15; TEMP 37; O2SAT 97
--- NOTE | 2022-07-09 15:44 | PC.NURSE ---
Pt has been up to chair this shift with therapy and remained on RA. VSS. at bedside. At this time, there are no changes since am assessment. CB in reach. Bed alarm in use for safety.
[2022-07-09 16:42] LABS: POC Glucose,Bedside 254 (70-110)
[2022-07-09 19:51] VITALS: BP 157/87; PULSE 72; RESP 18; TEMP 37.1; O2SAT 93
[2022-07-09 21:51] LABS: POC Glucose,Bedside 245 (70-110)
[2022-07-10] VITALS: BP 164/87; PULSE 64; RESP 16; TEMP 36.9; O2SAT 95
[2022-07-10 03:51] VITALS: BP 173/85; PULSE 68; RESP 16; TEMP 37; O2SAT 98
--- NOTE | 2022-07-10 04:42 | PC.NURSE ---
No acute changes from previous assessment. Pt has rested well this shift. Alert to person. At the beginning of shift pt was agitated and restless but is doing better now and is resting comfortably. Lung sounds are diminished but is tolerating room air well. Pt has been incontinent this shift. remains at bedside. states, this is not his usual self. He is usually confused but he does not cuss like this at home . The asked if pt may have a fever and oral temperature was 98.7. thought pt may be in pain so pt was medicated per jan. Pt appeared to be more relaxed after dose of PRN Tylenol. VSS. call barrera within reach. Bed alarm in place for pt safety.
[2022-07-10 05:11] VITALS: BMI 27.2
[2022-07-10 06:02] LABS: POC Glucose,Bedside 231 (70-110)
[2022-07-10 07:21] LABS: Chloride 101 mmol/L (98-107); Potassium 3.5 mmoL/L (3.5-5.1); Sodium 133 mmol/L (136-145)
[2022-07-10 07:24] LABS: Alanine Aminotransferase 9 U/L (12-78); Albumin Level 3.5 g/dl (3.5-5.0); Albumin/Globulin Ratio 1.2 (1.1-1.8); Alkaline Phosphatase 97 U/L (38-126); Anion Gap 10.5 mEq/L (5-15); Aspartate Amino Transferase 69 U/L (17-59); Bilirubin,Total 0.6 mg/dl (0.2-1.3); Blood Urea Nitrogen 16 mg/dl (9-20); Carbon Dioxide 25 mmol/L (22.0-30.0); Creatinine Clearance Estimated 79 mL/min (50-200); Estimated Glomerular Filt Rate 109 ml/min (>60); GFR (African American) 132 ML/MIN (>60); Globulin 2.9 g/dL (1.3-3.2); Total Protein,Serum 6.4 g/dl (6.3-8.2)
[2022-07-10 07:25] LABS: Calcium 7.7 mg/dl (8.4-10.2); Glucose 236 mg/dl (74-100)
[2022-07-10 07:35] VITALS: BP 160/92; PULSE 73; RESP 18; TEMP 37.3; O2SAT 94
--- NOTE | 2022-07-10 07:36 | PC.NURSE ---
RN aware of elevated bp.
--- NOTE | 2022-07-10 09:43 | HMH.ACPN2 ---
<Anais Ruano - Last Filed: 07/10/22 09:43> Internal Medicine - PN: Subj *Date: 07/10/22 *Time: 09:43 Interval history: Patient's stays with him continuously. He states he did sleep some last night and awakened at about 530 this morning and took all his clothes off. He has been unable to use the urinal and usually is incontinent before reaching bedside commode or bathroom. He may have taken a few steps with physical therapy yesterday. He did sit up in a chair for several hours. He is eating and drinking may be a little bit better according to the . She states he continues to cough and the cough sounds looser Exam Vital signs and Labs for Last 24 Hours: Temp Pulse Resp BP Pulse Ox 99.2 F 73 18 160/92 H 94 L 07/10/22 07:35 07/10/22 07:35 07/10/22 07:35 07/10/22 07:35 07/10/22 07:35 Laboratory Results - last 24 hr 07/09/22 12:09: POC Glucose 257 H 07/09/22 16:27: POC Glucose 254 H 07/09/22 21:43: POC Glucose 245 H 07/10/22 05:54: POC Glucose 231 H 07/10/22 06:47: Sodium 133 L, Potassium 3.5, Chloride 101, Carbon Dioxide 25, Anion Gap 10.5, BUN 16, Creatinine 0.70, Estimated Creat Clear 79, Estimated GFR 109, Est GFR ( Amer) 132, Glucose 236 H, Calcium 7.7 L, Total Bilirubin 0.6, AST 69 H D, ALT 9 L, Alkaline Phosphatase 97, Total Protein 6.4, Albumin 3.5, Globulin 2.9, Albumin/Globulin Ratio 1.2 I & O for Last 24 hours: Intake & Output 07/07/22 07/08/22 07/09/22 07/10/22 11:59 11:59 11:59 11:59 Intake Total 570 / 570 1260 / 1260 1369 / 1369 Output Total 300 / 300 275 / 275 Balance 270 / 270 985 / 985 1369 / 1369 Weight 201 lb 4.8 oz 167 lb 11.2 oz 201 lb 4.336 oz Microbiology Reports for the Last 24 Hours: Microbiology 07/07/22 21:00 Blood Blood Culture - Preliminary NO GROWTH AFTER 48 HOURS 07/07/22 21:00 Blood Blood Culture - Preliminary NO GROWTH AFTER 48 HOURS - Constitutional no acute distress, cooperative - *Routine Respiratory Exam Present: CTA bilaterally (Anteriorly and posteriorly with good bilateral breath sounds) - *Routine Cardiovascular Exam Present: RRR - *Routine Abdominal Exam Present: soft, normoactive bowel sounds. Absent: tenderness - *Routine Extremities Exam Present: pulses intact. Absent: edema, calf tenderness - *Routine Neurological Exam Present: alert, moving all extremities Assessment and Plan (1) COVID-19 Status: Acute Category: Medical Code(s): U07.1 - COVID-19 (2) Acute delirium Status: Acute Category: Medical Code(s): R41.0 - Disorientation, unspecified (3) Parkinsons disease Status: Acute Category: Medical Code(s): G20 - Parkinson's disease (4) Type 2 diabetes mellitus Status: Acute Category: Medical Code(s): E11.9 - Type 2 diabetes mellitus without complications (5) Hypertension Status: Acute Category: Medical Code(s): I10 - Essential (primary) hypertension (6) Lewy body dementia Status: Acute Category: Medical Code(s): G31.83 - Dementia with Lewy bodies; F02.80 - Dementia in other diseases classified elsewhere without behavioral disturbance (7) REGINO (obstructive sleep apnea) Status: Acute Category: Medical Code(s): G47.33 - Obstructive sleep apnea (adult) (pediatric) - Assessment and plan all Dx Assessment and Plan for all problems:: Continue with current care. Patient's ( Becka) expressed an interest in rehab placement at discharge.She did discuss discharge planning with care management. Surrounding facilities unable to take patient at this time. may take the patient home with home health referral. <Garret Mathews - Last Filed: 07/10/22 18:03> Internal Medicine - PN: Subj *Date: 07/10/22 *Time: 18:00 Exam Vital signs and Labs for Last 24 Hours: Temp Pulse Resp BP Pulse Ox 98.4 F 73 16 134/80 94 L 07/10/22 15:25 07/10/22 15:25 07/10/22 15:25 0
[2022-07-10 11:26] LABS: POC Glucose,Bedside 294 (70-110)
[2022-07-10 11:45] VITALS: BP 142/79; PULSE 73; RESP 21; TEMP 37.3; O2SAT 96
[2022-07-10 15:25] VITALS: BP 134/80; PULSE 73; RESP 16; TEMP 36.9; O2SAT 94
--- NOTE | 2022-07-10 17:49 | PC.NURSE ---
PT IS ALERT BUT CONFUSED. HAS SPENT MOST OF SHIFT UP TO CHAIR AND HAS TOLERATED WELL. GOOD APPETITE THIS SHIFT. FSBS HAVE BEEN ELEVATED AT BOTH CHECKS SSI PER MAR. PT HAS BEEN AT BEDSIDE MOST OF SHIFT. PT HAS BEEN INCONTINENT THIS SHIFT. HE HAS NOT REQUIRED O2 SUPPORT.
[2022-07-10 19:41] VITALS: BP 160/84; PULSE 71; RESP 160; TEMP 36.8; O2SAT 93
--- NOTE | 2022-07-10 20:12 | PC.NURSE ---
helped pt to bed and changed.
[2022-07-11] VITALS: BP 170/85; PULSE 72; RESP 18; TEMP 36.6; O2SAT 95
[2022-07-11 01:28] LABS: POC Glucose,Bedside 289 (70-110)
[2022-07-11 01:28] LABS: POC Glucose,Bedside 300 (70-110)
[2022-07-11 04:00] VITALS: BP 160/78; PULSE 74; RESP 16; TEMP 36.6; O2SAT 93
[2022-07-11 05:00] VITALS: BMI 22.9
[2022-07-11 08:00] VITALS: BP 134/74; PULSE 72; RESP 18; TEMP 36.7; O2SAT 92
[2022-07-11 09:00] LABS: Alanine Aminotransferase 18 U/L (12-78); Albumin Level 3.4 g/dl (3.5-5.0); Albumin/Globulin Ratio 1.2 (1.1-1.8); Alkaline Phosphatase 118 U/L (38-126); Anion Gap 13.8 mEq/L (5-15); Aspartate Amino Transferase 53 U/L (17-59); Bilirubin,Total 0.7 mg/dl (0.2-1.3); Calcium 8.4 mg/dl (8.4-10.2); Carbon Dioxide 25 mmol/L (22.0-30.0); Chloride 101 mmol/L (98-107); Globulin 2.8 g/dL (1.3-3.2); Glucose 256 mg/dl (74-100); Potassium 3.8 mmoL/L (3.5-5.1); Sodium 136 mmol/L (136-145); Total Protein,Serum 6.2 g/dl (6.3-8.2)
--- NOTE | 2022-07-11 09:14 | EXP.PN ---
Subjective *Date: 07/12/22 *Time: 09:01 Interval history: Patient denies chest pain and shortness of breath. is remained at bedside. She states that he slept better last night and had a better day yesterday. He ate better. He did take a few steps when ambulating from the bed to the chair. He sat up in a chair for quite a while. Exam Data for Last 24 hours Vital signs and Labs for Last 24 Hours: Temp Pulse Resp BP Pulse Ox 97.9 F 72 18 170/85 H 95 07/11/22 00:00 07/11/22 00:00 07/11/22 00:00 07/11/22 00:00 07/11/22 00:00 Laboratory Results - last 24 hr 07/10/22 11:14: POC Glucose 294 H 07/10/22 17:26: POC Glucose 300 H 07/10/22 20:15: POC Glucose 289 H 07/11/22 06:36: Sodium 136, Potassium 3.8, Chloride 101, Carbon Dioxide 25, Anion Gap 13.8, Glucose 256 H, Calcium 8.4, Total Bilirubin 0.7, AST 53, ALT 18 D, Alkaline Phosphatase 118, Total Protein 6.2 L, Albumin 3.4 L, Globulin 2.8, Albumin/Globulin Ratio 1.2 I & O for Last 24 hours: Intake & Output 07/08/22 07/09/22 07/10/22 07/11/22 11:59 11:59 11:59 11:59 Intake Total 570 / 570 1260 / 1260 1369 / 1369 180 / 180 Output Total 300 / 300 275 / 275 Balance 270 / 270 985 / 985 1369 / 1369 180 / 180 Weight 201 lb 4.8 oz 167 lb 11.2 oz 201 lb 4.336 oz Constitutional Constitutional: no acute distress *Routine Respiratory Exam Respiratory: Present CTA bilaterally (Anteriorly and posteriorly) *Routine Cardiovascular Exam Cardiovascular: Present RRR *Routine Abdominal Exam Abdominal: Present soft and normoactive bowel sounds; Absent tenderness *Routine Extremities Exam Extremities: Present pulses intact; Absent edema *Routine Neurological Exam Neurological: Present alert and normal speech; Absent oriented X3 Routine Psychiatric Exam Psychiatric: Present cooperative Assessment and Plan *Assessment and plan (1) Acute delirium: Status: Acute Category: Medical Code(s): R41.0 - Disorientation, unspecified (2) COVID-19: Status: Acute Category: Medical Code(s): U07.1 - COVID-19 (3) SIRS (systemic inflammatory response syndrome): Status: Acute Category: Medical Code(s): R65.10 - Systemic inflammatory response syndrome (SIRS) of non-infectious origin without acute organ dysfunction (4) Parkinsons disease: Status: Acute Category: Medical Code(s): G20 - Parkinson's disease (5) Type 2 diabetes mellitus: Status: Acute Category: Medical Code(s): E11.9 - Type 2 diabetes mellitus without complications (6) Hypertension: Status: Acute Category: Medical Code(s): I10 - Essential (primary) hypertension (7) Lewy body dementia: Status: Acute Category: Medical Code(s): G31.83 - Dementia with Lewy bodies; F02.80 - Dementia in other diseases classified elsewhere without behavioral disturbance (8) REGINO (obstructive sleep apnea): Status: Acute Category: Medical Code(s): G47.33 - Obstructive sleep apnea (adult) (pediatric) Plan Continue current care with COVID protocol Patient seen and examined. Concur with above. Assessment and plan all Dx Plan of Treatment: Continue with current care with COVID protocol. Will discuss further care and disposition with Dr. Mathews.
[2022-07-11 09:15] LABS: Blood Urea Nitrogen 13 mg/dl (9-20); Creatinine Clearance Estimated 79 mL/min (50-200); Estimated Glomerular Filt Rate 109 ml/min (>60); GFR (African American) 132 ML/MIN (>60)
[2022-07-11 12:00] VITALS: BP 125/92; PULSE 72; RESP 18; TEMP 37; O2SAT 95
[2022-07-11 12:31] LABS: POC Glucose,Bedside 288 (70-110)
[2022-07-11 16:00] VITALS: BP 151/75; PULSE 71; RESP 16; TEMP 36.7; O2SAT 95
[2022-07-11 17:57] LABS: POC Glucose,Bedside 282 (70-110)
--- NOTE | 2022-07-11 19:39 | PC.NURSE ---
Pt remains on RA. VSS. @ bedside. Bed alarm in use. No acute changes.
[2022-07-11 20:00] VITALS: BP 162/93; PULSE 75; RESP 19; TEMP 37.1; O2SAT 96
[2022-07-11 20:34] LABS: POC Glucose,Bedside 242 (70-110)
[2022-07-12 03:50] VITALS: BP 158/90; PULSE 73; RESP 20; TEMP 37.3; O2SAT 95
--- NOTE | 2022-07-12 04:14 | PC.NURSE ---
Pt is alert to self but confused through the night. Pt bathed during shift. Pt incontinent throughout shift of bowel and urine. Pt did use the urinal one time this shift. Pt lung sounds are clear, O2 sat >95% on room air. has been at bedside throughout night. No complaints this far. Pt is ACHS FS, covered per protocol according to mar. Pt abdomen soft and nontender, bowel sounds active. Call light in reach and working.
[2022-07-12 05:21] VITALS: BMI 23.1
[2022-07-12 06:28] LABS: POC Glucose,Bedside 213 (70-110)
[2022-07-12 07:50] LABS: Alanine Aminotransferase 17 U/L (12-78); Albumin Level 3.3 g/dl (3.5-5.0); Albumin/Globulin Ratio 1.1 (1.1-1.8); Alkaline Phosphatase 94 U/L (38-126); Anion Gap 12.3 mEq/L (5-15); Aspartate Amino Transferase 45 U/L (17-59); Bilirubin,Total 0.9 mg/dl (0.2-1.3); Blood Urea Nitrogen 13 mg/dl (9-20); Calcium 8.9 mg/dl (8.4-10.2); Carbon Dioxide 20 mmol/L (22.0-30.0); Chloride 108 mmol/L (98-107); Creatinine Clearance Estimated 67 mL/min (50-200); Estimated Glomerular Filt Rate 109 ml/min (>60); GFR (African American) 132 ML/MIN (>60); Globulin 3.1 g/dL (1.3-3.2); Glucose 225 mg/dl (74-100); Potassium 4.3 mmoL/L (3.5-5.1); Sodium 136 mmol/L (136-145); Total Protein,Serum 6.4 g/dl (6.3-8.2)
[2022-07-12 07:51] VITALS: BP 163/89; PULSE 72; RESP 18; TEMP 36.9; O2SAT 94
--- NOTE | 2022-07-12 08:28 | EXP.ACUTE.PN ---
Documented by User: CALISTA Gao 07/12/22 08:44 Subjective *Date: 07/12/22 *Time: 08:44 Interval history: Patient did not have a good night. According to nursing staff, he did become agitated a few times. He has been confused off and on this morning. He states he feels weak. He still has a cough but has not needed any oxygen. His states he had to have full assist with physical therapy yesterday. He cannot walk on his own. She was concerned about being able to care for him at home. Medical Exam Vital signs and Labs for Last 24 Hours: Temp Pulse Resp BP Pulse Ox 98.4 F 72 18 163/89 H 94 L 07/12/22 07:51 07/12/22 07:51 07/12/22 07:51 07/12/22 07:51 07/12/22 07:51 Laboratory Results - last 24 hr 07/11/22 06:36: Sodium 136, Potassium 3.8, Chloride 101, Carbon Dioxide 25, Anion Gap 13.8, BUN 13, Creatinine 0.70, Estimated Creat Clear 79, Estimated GFR 109, Est GFR ( Amer) 132, Glucose 256 H, Calcium 8.4, Total Bilirubin 0.7, AST 53, ALT 18 D, Alkaline Phosphatase 118, Total Protein 6.2 L, Albumin 3.4 L, Globulin 2.8, Albumin/Globulin Ratio 1.2 07/11/22 12:05: POC Glucose 288 H 07/11/22 17:43: POC Glucose 282 H 07/11/22 20:01: POC Glucose 242 H 07/12/22 06:06: POC Glucose 213 H 07/12/22 06:07: Sodium 136, Potassium 4.3, Chloride 108 H, Carbon Dioxide 20 L, Anion Gap 12.3, BUN 13, Creatinine 0.70, Estimated Creat Clear 67, Estimated GFR 109, Est GFR ( Amer) 132, Glucose 225 H, Calcium 8.9, Total Bilirubin 0.9, AST 45, ALT 17, Alkaline Phosphatase 94, Total Protein 6.4, Albumin 3.3 L, Globulin 3.1, Albumin/Globulin Ratio 1.1 I & O for Labs for Last 24 Hours: Intake & Output 07/09/22 07/10/22 07/11/22 07/12/22 11:59 11:59 11:59 11:59 Intake Total 1260 / 1260 1369 / 1369 493 / 493 1907 / 1907 Output Total 275 / 275 300 / 300 Balance 985 / 985 1369 / 1369 493 / 493 1607 / 1607 Weight 167 lb 11.2 oz 201 lb 4.336 oz 169 lb 4 oz 170 lb 6.4 oz Comment:: Does not appear to feel well Respiratory: decreased breath sounds and CTA bilaterally Cardiac: Reg Rate and Rhythm GI: soft, distention, tenderness or normal bowel sounds Extremities: edema or clubbing Skin: pallor Neuro: Weakness Assessment and Plan Assessment and plan all Dx Plan of Treatment: Continue with current care with COVID protocol. Will discuss further care and disposition with Dr. Mathews. Patient seen and examined this morning. Concur with above assessment. No acute respiratory events. Respiratory status is stable. He has completed 5 days of remdesivir. This will be discontinued. Disposition has been an issue as there are no extended care facilities excepting COVID-positive patients at this time. It would be a great challenge for his to be able to care for him at home in his current weakened state. Documented by User: Garret Mathews MD 07/12/22 17:16 Subjective *Date: 07/12/22 *Time: 17:09 Assessment and Plan Assessment and plan all Dx Plan of Treatment: Continue with current care with COVID protocol. Will discuss further care and disposition with Dr. Mathews. Patient seen and examined this morning. Concur with above assessment. No acute respiratory events. Respiratory status is stable. He has completed 5 days of remdesivir. This will be discontinued. Disposition has been an issue as there are no extended care facilities excepting COVID-positive patients at this time. It would be a great challenge for his to be able to care for him at home in his current weakened state.
--- NOTE | 2022-07-12 10:06 | PC.NURSE ---
Rounded on pt, cleaned and straightened room. Pt up to chair, will be discharged home today. No needs voiced at this time.
[2022-07-12 10:49] VITALS: BP 166/81; PULSE 74; RESP 17; TEMP 37.1; O2SAT 95
[2022-07-12 12:34] LABS: POC Glucose,Bedside 297 (70-110)
[2022-07-12 14:51] VITALS: BP 153/66; PULSE 72; RESP 17; TEMP 36.9; O2SAT 97
--- NOTE | 2022-07-12 15:21 | PC.NURSE ---
rounded on patient. wasn't at bedside. patient up to chair with chair alarm in place. no needs voiced.
--- NOTE | 2022-07-12 15:38 | PC.NURSE ---
Pt is A/O to self. He had an episode where his had left to get run errands and he had a crying melt down. I had to explain that she was coming back and settled him down. He has been up to the chair most of the day and has tolerated it well. He has eaten a little bit with persuasion and has tolerated that. He wants to take his pills one at a time. His coccyx is a little red so I placed a flower shaped dressing trying to be proactive in his care. I have to redirect him when trying to do his care, but he is always cooperative.
--- NOTE | 2022-07-12 17:16 | EXP.PN ---
Subjective *Date: 07/12/22 *Time: 09:16 Interval history: Confused and agitated at times through the night. Appetite still poor. Able to sit up in chair several hours during the day. Incontinent of bowel and bladder Exam Data for Last 24 hours Vital signs and Labs for Last 24 Hours: Temp Pulse Resp BP Pulse Ox 98.4 F 72 17 153/66 H 97 07/12/22 14:51 07/12/22 14:51 07/12/22 14:51 07/12/22 14:51 07/12/22 14:51 Laboratory Results - last 24 hr 07/11/22 17:43: POC Glucose 282 H 07/11/22 20:01: POC Glucose 242 H 07/12/22 06:06: POC Glucose 213 H 07/12/22 06:07: Sodium 136, Potassium 4.3, Chloride 108 H, Carbon Dioxide 20 L, Anion Gap 12.3, BUN 13, Creatinine 0.70, Estimated Creat Clear 67, Estimated GFR 109, Est GFR ( Amer) 132, Glucose 225 H, Calcium 8.9, Total Bilirubin 0.9, AST 45, ALT 17, Alkaline Phosphatase 94, Total Protein 6.4, Albumin 3.3 L, Globulin 3.1, Albumin/Globulin Ratio 1.1 07/12/22 12:18: POC Glucose 297 H I & O for Last 24 hours: Intake & Output 07/10/22 07/11/22 07/12/22 07/13/22 11:59 11:59 11:59 11:59 Intake Total 1369 / 1369 493 / 493 1907 / 1907 240 / 240 Output Total 300 / 300 Balance 1369 / 1369 493 / 493 1607 / 1607 240 / 240 Weight 201 lb 4.336 oz 169 lb 4 oz 170 lb 6.4 oz Constitutional Comments: He is alert but confused. Color normal. No resp distress. Lungs clear anteriorly. Heart is regular. Ext no edema. Assessment and Plan *Assessment and plan (1) COVID-19: Status: Acute Category: Medical Code(s): U07.1 - COVID-19 (2) Acute delirium: Status: Acute Category: Medical Code(s): R41.0 - Disorientation, unspecified (3) SIRS (systemic inflammatory response syndrome): Status: Acute Category: Medical Code(s): R65.10 - Systemic inflammatory response syndrome (SIRS) of non-infectious origin without acute organ dysfunction (4) Parkinsons disease: Status: Acute Category: Medical Code(s): G20 - Parkinson's disease (5) Type 2 diabetes mellitus: Status: Acute Category: Medical Code(s): E11.9 - Type 2 diabetes mellitus without complications (6) Hypertension: Status: Acute Category: Medical Code(s): I10 - Essential (primary) hypertension (7) Lewy body dementia: Status: Acute Category: Medical Code(s): G31.83 - Dementia with Lewy bodies; F02.80 - Dementia in other diseases classified elsewhere without behavioral disturbance (8) REGINO (obstructive sleep apnea): Status: Acute Category: Medical Code(s): G47.33 - Obstructive sleep apnea (adult) (pediatric) Assessment and plan all Dx Plan of Treatment: He remains quite weak and requires assitance x 2 to transfer to chair. Still awaiting placement. Continue PT
[2022-07-12 17:32] LABS: POC Glucose,Bedside 229 (70-110)
[2022-07-12 20:00] VITALS: BP 156/74; PULSE 73; RESP 16; TEMP 36.9; O2SAT 99
[2022-07-12 20:41] LABS: POC Glucose,Bedside 230 (70-110)
[2022-07-13] VITALS: BP 185/91; PULSE 75; RESP 18; TEMP 36.8; O2SAT 96
[2022-07-13 03:45] VITALS: BP 162/86; PULSE 76; RESP 16; TEMP 37; O2SAT 98
--- NOTE | 2022-07-13 04:02 | PC.NURSE ---
Pt is alert to self only, pt has spells of confusion throughout shift. remained at bedside throughout the night. Pt has incontinent and continent with urinal of urine. Pt has had no bowel movement this shift. Pt complained of a headache one time, treated prn per mar. Pt lung sounds are clear, abdomen soft and nontender, bowel sounds active. O2 >95% on room air. ACHS FS, covered per ordered protocol. Call light in reach and working.
[2022-07-13 04:44] VITALS: BMI 22.7
[2022-07-13 06:07] LABS: POC Glucose,Bedside 255 (70-110)
[2022-07-13 07:31] LABS: Alanine Aminotransferase 20 U/L (12-78); Albumin Level 3.6 g/dl (3.5-5.0); Albumin/Globulin Ratio 1.2 (1.1-1.8); Alkaline Phosphatase 113 U/L (38-126); Anion Gap 12.6 mEq/L (5-15); Aspartate Amino Transferase 40 U/L (17-59); Bilirubin,Total 1.3 mg/dl (0.2-1.3); Blood Urea Nitrogen 11 mg/dl (9-20); Calcium 8.8 mg/dl (8.4-10.2); Carbon Dioxide 26 mmol/L (22.0-30.0); Chloride 100 mmol/L (98-107); Creatinine Clearance Estimated 66 mL/min (50-200); Estimated Glomerular Filt Rate 130 ml/min (>60); GFR (African American) 158 ML/MIN (>60); Glucose 253 mg/dl (74-100); Potassium 3.6 mmoL/L (3.5-5.1); Sodium 135 mmol/L (136-145); Total Protein,Serum 6.6 g/dl (6.3-8.2)
[2022-07-13 08:00] VITALS: BP 177/84; PULSE 71; RESP 20; TEMP 36.9; O2SAT 95
--- NOTE | 2022-07-13 08:32 | EXP.ACUTE.PN ---
Subjective *Date: 07/13/22 *Time: 09:51 Interval history: Patient is still having some confusion at night and remains very weak. He is still on room air. Still not much of an appetite. Medical Exam Vital signs and Labs for Last 24 Hours: Temp Pulse Resp BP Pulse Ox 98.4 F 71 20 177/84 H 95 07/13/22 08:00 07/13/22 08:00 07/13/22 08:00 07/13/22 08:00 07/13/22 08:00 Laboratory Results - last 24 hr 07/12/22 12:18: POC Glucose 297 H 07/12/22 17:13: POC Glucose 229 H 07/12/22 20:35: POC Glucose 230 H 07/13/22 06:00: POC Glucose 255 H 07/13/22 06:55: Sodium 135 L, Potassium 3.6, Chloride 100, Carbon Dioxide 26, Anion Gap 12.6, BUN 11, Creatinine 0.60 L, Estimated Creat Clear 66, Estimated GFR 130, Est GFR ( Amer) 158, Glucose 253 H, Calcium 8.8, Total Bilirubin 1.3, AST 40, ALT 20, Alkaline Phosphatase 113, Total Protein 6.6, Albumin 3.6, Globulin 3.0, Albumin/Globulin Ratio 1.2 I & O for Labs for Last 24 Hours: Intake & Output 07/10/22 07/11/22 07/12/22 07/13/22 23:59 23:59 23:59 23:59 Intake Total 524 / 524 1358 / 1358 1222 / 1222 Output Total 600 / 600 Balance 524 / 524 1358 / 1358 622 / 622 Weight 201 lb 4.336 oz 169 lb 4 oz 170 lb 6.4 oz 168 lb 1.6 oz Microbiology Reports for the Last 24 Hours: Microbiology 07/07/22 21:00 Blood Blood Culture - Final NO GROWTH AFTER 5 DAYS 07/07/22 21:00 Blood Blood Culture - Final NO GROWTH AFTER 5 DAYS Constitutional: chronically ill appearing Respiratory: decreased breath sounds and CTA bilaterally Cardiac: Reg Rate and Rhythm GI: soft, distention or tenderness Extremities: edema Skin: pallor Neuro: awake Assessment and Plan *Assessment and plan (1) COVID-19: Status: Acute Category: Medical Code(s): U07.1 - COVID-19 (2) Acute delirium: Status: Acute Category: Medical Code(s): R41.0 - Disorientation, unspecified (3) SIRS (systemic inflammatory response syndrome): Status: Acute Category: Medical Code(s): R65.10 - Systemic inflammatory response syndrome (SIRS) of non-infectious origin without acute organ dysfunction (4) Parkinsons disease: Status: Acute Category: Medical Code(s): G20 - Parkinson's disease (5) Type 2 diabetes mellitus: Status: Acute Category: Medical Code(s): E11.9 - Type 2 diabetes mellitus without complications (6) Hypertension: Status: Acute Category: Medical Code(s): I10 - Essential (primary) hypertension (7) Lewy body dementia: Status: Acute Category: Medical Code(s): G31.83 - Dementia with Lewy bodies; F02.80 - Dementia in other diseases classified elsewhere without behavioral disturbance (8) REGINO (obstructive sleep apnea): Status: Acute Category: Medical Code(s): G47.33 - Obstructive sleep apnea (adult) (pediatric) Assessment and plan all Dx Plan of Treatment: Continue with current care with COVID protocol. Will discuss further care and disposition with Dr. Mathews. Patient seen and examined. Concur with above. Will resume his Lantus but at lower dose until appetite has improved. Still no skilled beds available to accept COVID patients. Continue supportive care and therapy.
[2022-07-13 12:00] VITALS: BP 157/96; PULSE 77; RESP 20; TEMP 36.9; O2SAT 92
[2022-07-13 12:13] LABS: POC Glucose,Bedside 252 (70-110)
--- NOTE | 2022-07-13 12:15 | DIET.NUTRFU ---
Patient is eating slightly better today, 25% glucerna, corona and couple bites of muffin. Nurse reported he was less alert yesterday and was unable to walk or use bedside commode. Better today able to walk and fed self. Discharge plan is finding placement and d/t his COVID status it will probably be early next week. Last BM noted 07/12 x2. Continues on IVF with labs: Na 135L and glucose elevated at 253H. Routinely BS elevated in high 200's, tx in place, possibly d/t lack of meal intake and stress illness is causing with increased confusion. Patient's confusion varies d/t dx of lewy body dementia.
--- NOTE | 2022-07-13 13:21 | CARE MANAGER ---
Addendum entered by Shena Field RN 07/17/22 10:58: Patient planned for discharge today. He will go to [facility] for skilled care, transported by EMS. Original Note: Patient referral faxed to multiple SNF facilities on 07/12. Patient offered a bed by [facility] in [place], and has accepted. Patient can go to facility on Saturday, r/t needing to be 10 days post Covid positive.
[2022-07-13 16:00] VITALS: BP 168/77; PULSE 77; RESP 16; TEMP 36.7; O2SAT 96
--- NOTE | 2022-07-13 16:30 | PC.NURSE ---
Spoke with pts she refused to have his IV changed since he is so resistive to care. I explain the importance of needing it change. She stated that she understood and did not want it done.
[2022-07-13 17:50] LABS: POC Glucose,Bedside 198 (70-110)
--- NOTE | 2022-07-13 19:51 | PC.NURSE ---
Pt is A/O to self. He has been a little resistive to care. When giving medication or changing him he is questioning and guarded. I had to explain everything that was going on and he finally gives in. He was up to the chair for a few hours today and has tolerated it well. His bottom is a little red and a new dressing was placed. His is at bedside. He keeps asking what the game plan is .
[2022-07-13 20:00] VITALS: BP 153/71; PULSE 84; RESP 16; TEMP 37.1; O2SAT 97
[2022-07-13 20:50] LABS: POC Glucose,Bedside 226 (70-110)
[2022-07-14] VITALS (7 sets, daily range): BP systolic 135–172; BP diastolic 65–88; PULSE 67–81; RESP 17–20; TEMP 36.4–37.1; O2SAT 95–98; BMI 22.8
--- NOTE | 2022-07-14 05:39 | PC.NURSE ---
PT HAS RESTED WELL OVER NIGHT. REMAINS ALERT TO PERSON. PT APPEARED TO BE MORE CONTENT THIS EVENING. LUNG SOUNDS REMAIN CLEAR BILATERALLY, TOLERATING ROOM AIR WELL. PT BEING TURNED OFTEN HE WILL ALLOW STAFF TO TURN HIM. HE HAS BEEN INCONTINENT THIS SHIFT. AT EVENING MED PASS PT DID HAVE QUESTIONS ABOUT HIS MEDICATION, ASKING WHAT IT WAS AND WHAT IT WAS FOR. EACH MED EXPLAINED TO PT AND PT WAS AGREEABLE WITH MEDICATIONS. VSS. REMAINS AT BEDSIDE.
[2022-07-14 06:12] LABS: POC Glucose,Bedside 225 (70-110)
[2022-07-14 08:16] LABS: Alanine Aminotransferase 31 U/L (12-78); Albumin Level 3.4 g/dl (3.5-5.0); Albumin/Globulin Ratio 1.2 (1.1-1.8); Alkaline Phosphatase 99 U/L (38-126); Aspartate Amino Transferase 38 U/L (17-59); Bilirubin,Total 1.3 mg/dl (0.2-1.3); Blood Urea Nitrogen 14 mg/dl (9-20); Calcium 8.7 mg/dl (8.4-10.2); Carbon Dioxide 25 mmol/L (22.0-30.0); Chloride 102 mmol/L (98-107); Creatinine Clearance Estimated 66 mL/min (50-200); Estimated Glomerular Filt Rate 130 ml/min (>60); GFR (African American) 158 ML/MIN (>60); Globulin 2.9 g/dL (1.3-3.2); Glucose 210 mg/dl (74-100); Sodium 135 mmol/L (136-145); Total Protein,Serum 6.3 g/dl (6.3-8.2)
--- NOTE | 2022-07-14 10:59 | EXP.PN ---
Subjective *Date: 07/14/22 *Time: 10:59 Interval history: He remains confused but had a little better night last night. Not as agitated. He is eating some. No respiratory distress. Remains incontinent. Legs are still weak. Exam Data for Last 24 hours Vital signs and Labs for Last 24 Hours: Temp Pulse Resp BP Pulse Ox 98.6 F 78 20 169/72 H 95 07/14/22 08:00 07/14/22 08:00 07/14/22 08:00 07/14/22 08:00 07/14/22 08:00 Laboratory Results - last 24 hr 07/13/22 12:05: POC Glucose 252 H 07/13/22 17:37: POC Glucose 198 H 07/13/22 20:33: POC Glucose 226 H 07/14/22 06:05: POC Glucose 225 H 07/14/22 07:12: Sodium 135 L, Potassium 4.0, Chloride 102, Carbon Dioxide 25, Anion Gap 12.0, BUN 14 D, Creatinine 0.60 L, Estimated Creat Clear 66, Estimated GFR 130, Est GFR ( Amer) 158, Glucose 210 H, Calcium 8.7, Total Bilirubin 1.3, AST 38, ALT 31 D, Alkaline Phosphatase 99, Total Protein 6.3, Albumin 3.4 L, Globulin 2.9, Albumin/Globulin Ratio 1.2 I & O for Last 24 hours: Intake & Output 07/11/22 07/12/22 07/13/22 07/14/22 11:59 11:59 11:59 11:59 Intake Total 493 / 493 1907 / 1907 480 / 480 720 / 720 Output Total 300 / 300 300 / 300 0 / 0 Balance 493 / 493 1607 / 1607 180 / 180 720 / 720 Weight 169 lb 4 oz 170 lb 6.4 oz 168 lb 1.6 oz 168 lb 3.403 oz Constitutional Comments: He is awake but oriented to name only. Lungs are clear to auscultation. Heart is regular. Abdomen is soft and nondistended. Assessment and Plan *Assessment and plan (1) COVID-19: Status: Acute Category: Medical Code(s): U07.1 - COVID-19 (2) Acute delirium: Status: Acute Category: Medical Code(s): R41.0 - Disorientation, unspecified (3) SIRS (systemic inflammatory response syndrome): Status: Acute Category: Medical Code(s): R65.10 - Systemic inflammatory response syndrome (SIRS) of non-infectious origin without acute organ dysfunction (4) Parkinsons disease: Status: Acute Category: Medical Code(s): G20 - Parkinson's disease (5) Type 2 diabetes mellitus: Status: Acute Category: Medical Code(s): E11.9 - Type 2 diabetes mellitus without complications (6) Hypertension: Status: Acute Category: Medical Code(s): I10 - Essential (primary) hypertension (7) Lewy body dementia: Status: Acute Category: Medical Code(s): G31.83 - Dementia with Lewy bodies; F02.80 - Dementia in other diseases classified elsewhere without behavioral disturbance (8) REGINO (obstructive sleep apnea): Status: Acute Category: Medical Code(s): G47.33 - Obstructive sleep apnea (adult) (pediatric) Assessment and plan all Dx Plan of Treatment: Stable respiratory status. Still confused and incontinent. Apparently has a bed available at [facility] but cannot transfer until he is 10 days post COVID diagnosis. Continue per orders. Blood pressure remains elevated. Will add chlorthalidone.
[2022-07-14 13:05] LABS: POC Glucose,Bedside 239 (70-110)
--- NOTE | 2022-07-14 16:00 | PC.NURSE ---
Pts family has refused to place a new IV due to resistive to care
[2022-07-14 18:11] LABS: POC Glucose,Bedside 161 (70-110)
--- NOTE | 2022-07-14 19:59 | PC.NURSE ---
Pt is a/o to self. He is resistive to care at first. I placed a new dressing on his skin tear on his right and his coccyx. His has been at bedside all day. He sat up in the chair for a good part of the day, and tolerated it well.
[2022-07-14 21:40] LABS: POC Glucose,Bedside 192 (70-110)
[2022-07-15 04:00] VITALS: BP 150/85; PULSE 75; RESP 18; TEMP 36.8; O2SAT 97
[2022-07-15 04:17] VITALS: BMI 22.7
--- NOTE | 2022-07-15 04:34 | PC.NURSE ---
No acute changes since previous assessment. Pt remains alert to person only but is more alert and talkative. He has rested well this shift. Lung sounds remain clear and is tolerating room air well. Pt is being turned Q2HRS. He has continued to be incontinent this shift. Pt's bottom is slightly red. Dressing in place. VSS. remains at bedside.
[2022-07-15 05:40] LABS: POC Glucose,Bedside 118 (70-110)
[2022-07-15 06:45] VITALS: TEMP 36.9
[2022-07-15 08:00] VITALS: BP 135/74; PULSE 74; RESP 20; TEMP 36.5; O2SAT 96
--- NOTE | 2022-07-15 09:10 | PC.NURSE ---
courtesy tech round: Pt sitting up in bed. Pitcher of unsweet tea was brought as requested. no further requests at this time.
--- NOTE | 2022-07-15 09:14 | EXP.PN ---
Subjective *Date: 07/15/22 *Time: 09:14 Interval history: Continues with . Tries to disrobe during the night. Pulled IV out last night and refused to have restarted. He is eating and drinking better. Exam Data for Last 24 hours Vital signs and Labs for Last 24 Hours: Temp Pulse Resp BP Pulse Ox 97.7 F 74 20 135/74 96 07/15/22 08:00 07/15/22 08:00 07/15/22 08:00 07/15/22 08:00 07/15/22 08:00 Laboratory Results - last 24 hr 07/14/22 12:35: POC Glucose 239 H 07/14/22 18:02: POC Glucose 161 H 07/14/22 21:24: POC Glucose 192 H 07/15/22 05:33: POC Glucose 118 H I & O for Last 24 hours: Intake & Output 07/12/22 07/13/22 07/14/22 07/15/22 11:59 11:59 11:59 11:59 Intake Total 1907 / 1907 480 / 480 720 / 720 840 / 840 Output Total 300 / 300 300 / 300 0 / 0 0 / 0 Balance 1607 / 1607 180 / 180 720 / 720 840 / 840 Weight 170 lb 6.4 oz 168 lb 1.6 oz 168 lb 3.403 oz 167 lb 15.876 oz Constitutional Comments: Somewhat somnolent this morning. Arouses easily. Oriented to name only. No respiratory distress. Lungs are clear. Abdomen soft and nondistended with no tenderness. Extremities no edema. Assessment and Plan *Assessment and plan (1) COVID-19: Status: Acute Category: Medical Code(s): U07.1 - COVID-19 (2) Acute delirium: Status: Acute Category: Medical Code(s): R41.0 - Disorientation, unspecified (3) Parkinsons disease: Status: Acute Category: Medical Code(s): G20 - Parkinson's disease (4) Type 2 diabetes mellitus: Status: Acute Category: Medical Code(s): E11.9 - Type 2 diabetes mellitus without complications (5) Hypertension: Status: Acute Category: Medical Code(s): I10 - Essential (primary) hypertension (6) Lewy body dementia: Status: Acute Category: Medical Code(s): G31.83 - Dementia with Lewy bodies; F02.80 - Dementia in other diseases classified elsewhere without behavioral disturbance (7) REGINO (obstructive sleep apnea): Status: Acute Category: Medical Code(s): G47.33 - Obstructive sleep apnea (adult) (pediatric) Assessment and plan all Dx Plan of Treatment: Stable respiratory status. Still confused and incontinent. Blood pressure is marginally improved. We will discontinue IV fluids as he is taking adequate p.o. intake. Morning labs pending. Awaiting confirmation of ECF bed availability this week.
[2022-07-15 09:25] LABS: Basophils % 0.5 % (0.1-2.0); Eosinophils # 0.1 K/mm3 (0.0-0.4); Eosinophils % 1.7 % (0.1-12.0); Hematocrit 41.8 % (42.0-52.0); Hemoglobin 14.1 g/dL (14.1-18.0); Lymphocytes # 1.1 K/mm3 (0.7-4.5); Lymphocytes % 14.6 % (10-50); Mean Corpuscular HGB Conc 33.7 g/dL (31.8-35.4); Monocytes # 0.5 K/mm3 (0.1-1.0); Monocytes % 6.7 % (1.7-9.3); Neutrophils # 5.5 K/mm3 (1.8-7.8); Neutrophils % 76.4 % (37.0-80.0); Platelet Count 296 K/mm3 (142-424); Red Cell Distribution Width 13.4 % (11.5-17.5); White Blood Count 7.2 K/mm3 (4.8-10.8)
[2022-07-15 12:00] VITALS: BP 137/79; PULSE 82; RESP 18; TEMP 37.2; O2SAT 95
[2022-07-15 13:27] LABS: POC Glucose,Bedside 225 (70-110)
[2022-07-15 16:00] VITALS: BP 154/80; PULSE 81; RESP 18; TEMP 36.6; O2SAT 98
--- NOTE | 2022-07-15 19:12 | PC.NURSE ---
Pt is A/Ox1. Pt ripped IV out and Dr. Mathews is aware. He stated that he was fine with him not having one. He has been pleasant, but resistive to care. is at bedside.
[2022-07-15 20:00] VITALS: BP 148/73; PULSE 85; RESP 19; TEMP 36.9
--- NOTE | 2022-07-15 20:16 | PC.NURSE ---
spoke with Dr Mathews to confirm insulin coverage for FSBS of 155. orders to give 10 of Lantus and no sliding scale.
[2022-07-16 03:10] VITALS: BP 156/73; PULSE 78; RESP 18; TEMP 36.9; O2SAT 95
[2022-07-16 03:43] LABS: POC Glucose,Bedside 155 (70-110)
[2022-07-16 04:28] VITALS: BMI 22.7
--- NOTE | 2022-07-16 04:49 | PC.NURSE ---
pt has rested throughout the shift. A&O to self. pt has been resistive to care at times this shift. pt has been turned Q2hr. is at bedside. CB in reach. bed alarm is on and functioning.
[2022-07-16 05:50] LABS: POC Glucose,Bedside 176 (70-110)
[2022-07-16 05:58] LABS: POC Glucose,Bedside 145 (70-110)
[2022-07-16 08:00] VITALS: BP 150/81; PULSE 78; RESP 18; TEMP 36.1; O2SAT 96
[2022-07-16 12:00] VITALS: BP 132/78; PULSE 79; RESP 18; TEMP 36.6; O2SAT 97
--- NOTE | 2022-07-16 14:44 | PC.NURSE ---
PT IS RESTING IN BED. ALERT TO SELF ONLY. PT IS EATING AND DRINKING WELL. REQUIRES ASSISTANCE WITH FEEDING. PT TOLERATED SITTING UP IN THE CHAIR FOR SEVERAL HOURS THIS SHIFT. LUNG SOUNDS CLEAR. ABDOMEN SOFT/NON TENDER WITH ACTIVE BOWEL SOUNDS. REDNESS NOTED TO THE COCCYX WITH DRESSING INTACT. NO SWELLING NOTED TO BLE. WILL CONTINUE TO MONITOR.
--- NOTE | 2022-07-16 14:45 | EXP.PN ---
Subjective *Date: 07/16/22 *Time: 08:10 Interval history: No new concerns. No respiratory problems Exam Data for Last 24 hours Vital signs and Labs for Last 24 Hours: Temp Pulse Resp BP Pulse Ox 97.9 F 79 18 132/78 97 07/16/22 12:00 07/16/22 12:00 07/16/22 12:00 07/16/22 12:00 07/16/22 12:00 Laboratory Results - last 24 hr 07/15/22 17:24: POC Glucose 145 H 07/15/22 19:53: POC Glucose 155 H 07/16/22 05:33: POC Glucose 176 H I & O for Last 24 hours: Intake & Output 07/14/22 07/15/22 07/16/22 07/17/22 11:59 11:59 11:59 11:59 Intake Total 720 / 720 840 / 840 480 / 480 Output Total 0 / 0 0 / 0 0 / 0 Balance 720 / 720 840 / 840 480 / 480 Weight 168 lb 3.403 oz 167 lb 15.876 oz 168 lb 1.287 oz Constitutional Comments: More alert this morning. Oriented to name only. Lungs are clear. Abdomen soft and nondistended with no tenderness. Extremities no edema. Assessment and Plan *Assessment and plan (1) COVID-19: Status: Acute Category: Medical Code(s): U07.1 - COVID-19 (2) Acute delirium: Status: Acute Category: Medical Code(s): R41.0 - Disorientation, unspecified (3) Parkinsons disease: Status: Acute Category: Medical Code(s): G20 - Parkinson's disease (4) Type 2 diabetes mellitus: Status: Acute Category: Medical Code(s): E11.9 - Type 2 diabetes mellitus without complications (5) Hypertension: Status: Acute Category: Medical Code(s): I10 - Essential (primary) hypertension (6) Lewy body dementia: Status: Acute Category: Medical Code(s): G31.83 - Dementia with Lewy bodies; F02.80 - Dementia in other diseases classified elsewhere without behavioral disturbance (7) REGINO (obstructive sleep apnea): Status: Acute Category: Medical Code(s): G47.33 - Obstructive sleep apnea (adult) (pediatric) Assessment and plan all Dx Plan of Treatment: Stable respiratory status. Still confused and incontinent. Plan for discharge to ECF tomorrow
[2022-07-16 16:00] VITALS: BP 147/74; PULSE 87; RESP 16; TEMP 36.8; O2SAT 99
[2022-07-16 20:00] VITALS: BP 129/78; PULSE 81; RESP 20; TEMP 37.2; O2SAT 98
[2022-07-17] VITALS: BP 130/82; PULSE 86; RESP 20; TEMP 37.1; O2SAT 95
[2022-07-17 04:00] VITALS: BP 136/65; PULSE 80; RESP 20; TEMP 36.7; O2SAT 91
--- NOTE | 2022-07-17 04:12 | PC.NURSE ---
pt was a&o to self, birthday, and year at beginning of shift. he has progressively gotten more combative and confused t/o the shift. he grabs staffs wrists during pt care. remains on RA, lung sounds clear, non-productive cough noted. no edema noted he has been incontinent t/o the night. requires assistance with eating. dressing noted to coccyx. at bedside, call light within reach, bed alarm on and functioning, no needs at this time
[2022-07-17 05:00] VITALS: BMI 22.7
[2022-07-17 07:53] VITALS: BP 123/76; PULSE 73; RESP 17; TEMP 36.8; O2SAT 96
--- NOTE | 2022-07-17 08:43 | EXP.DC.SUM ---
General Admission date:: 07/07/22 Discharge date: 07/17/22 HPI HPI HPI: Mr. Owusu began feeling bad yesterday morning with fatigue, weakness, congestion, and headache and then noted to have a fever.? Symptoms worsened throughout the day to the point he was too weak to ambulate around the house and his could no longer care for him.? At this point he was brought to the emergency room for further evaluation.? On work-up in the ER, he was found to be COVID-positive.? Laboratory data was otherwise nonrevealing and his chest x-ray he was clear.-Satisfactory ongoing care.? He is diabetic with a history of Parkinson's, obstructive sleep apnea, prostate cancer and Lewy body dementia.? He was admitted for further evaluation and monitoring of his respiratory status. Hospital Course Hospital Course Hospital Course: On admission patient was noted to have generalized weakness and increased confusion from his baseline dementia. This was felt related to his acute illness from COVID-19 infection. O2 sats were stable on room air. Chest x-ray showing no active disease. IV fluids were continued while monitoring his respiratory status. He was placed on sliding scale insulin due to poor appetite. COVID protocol was initiated along with remdesivir Patient's stayed with him throughout his admission. He continued to be restless and confused at intervals as well as lethargic at times.. Initially he had a persistent cough but this did resolve. He was unable to use the urinal and thus was incontinent. Physical therapy did work with patient. He required maximum assist with transfers and ambulation. He was able to take a few steps but only with help. He did sit up in a chair for several hours every day. Patient did begin to sleep at longer intervals during the night. He ate better at times. He continued with agitation at times. Due to ongoing debility care management was consulted for disposition. Care management noted that disposition was difficult due to no extended care facilities were excepting COVID-positive patients. Lantus was resumed at a lower dose due to ongoing poor appetite. Patient continued to be confused throughout his stay. His respiratory status did remain stable. He continued to be incontinent of bowel and bladder. He continued to require max assist with transfers and ambulation. IV fluids were eventually discontinued due to adequate p.o. intake. Bed was obtained at [facility] with plans to be discharged on 07/17/2022. On 07/17/2022 condition remained unchanged. He was stable to be transferred to the nursing facility for ongoing care. Exam Data for Last 24 hours Vital signs and Labs for Last 24 Hours: Temp Pulse Resp BP Pulse Ox 98.2 F 73 17 123/76 96 07/17/22 07:53 07/17/22 07:53 07/17/22 07:53 07/17/22 07:53 07/17/22 07:53 I & O for Last 24 hours: Intake & Output 07/14/22 07/15/22 07/16/22 07/17/22 11:59 11:59 11:59 11:59 Intake Total 720 / 720 840 / 840 480 / 480 0 / 0 Output Total 0 / 0 0 / 0 0 / 0 Balance 720 / 720 840 / 840 480 / 480 0 / 0 Weight 168 lb 3.403 oz 167 lb 15.876 oz 168 lb 1.287 oz 168 lb 1.287 oz Narrative: Vital signs and Labs for Last 24 Hours: Temp Pulse Resp BP Pulse Ox ?98.2 F ?73 ?17 ?123/76 ?96 ?07/17/22 07:53 ?07/17/22 07:53 ?07/17/22 07:53 ?07/17/22 07:53 ?07/17/22 07:53 I & O for Last 24 hours: Intake & Output ? 07/14/22 07/15/22 07/16/22 07/17/22 ? 11:59 11:59 11:59 11:59 Intake Total 720 / 720 840 / 840 480 / 480 0 / 0 Output Total 0 / 0 0 / 0 0 / 0 ? Balance 720 / 720 840 / 840 480 / 480 0 / 0 Weight 168 lb 3.403 oz 167 lb 15.876 oz 168 lb 1.287 oz 168 lb 1.287 oz Constitutional Constitutional: no acute distress Comments: He sleeps at intervals during exam *Routine Respiratory Exam Respiratory: Present CTA bilaterally (Anteriorly and posteriorly) *Routine Cardiovascular Exam Cardiovascular: Present RRR *Routine Abdominal
--- NOTE | 2022-07-17 09:20 | EXP.PN ---
Subjective *Date: 07/17/22 *Time: 13:15 Interval history: Patient's has remained at bedside 10/06. She states he is eating satisfactory for some meals. He has been out of bed and requires maximum assist. She states he sometimes notes and sometimes. He is not incontinent of urine. His bowels are moving. She states his cough is much worse. Bed is available at [facility] and will be discharged for transfer for further rehab. Exam Data for Last 24 hours Vital signs and Labs for Last 24 Hours: Temp Pulse Resp BP Pulse Ox 98.2 F 73 17 123/76 96 07/17/22 07:53 07/17/22 07:53 07/17/22 07:53 07/17/22 07:53 07/17/22 07:53 I & O for Last 24 hours: Intake & Output 07/14/22 07/15/22 07/16/22 07/17/22 11:59 11:59 11:59 11:59 Intake Total 720 / 720 840 / 840 480 / 480 0 / 0 Output Total 0 / 0 0 / 0 0 / 0 Balance 720 / 720 840 / 840 480 / 480 0 / 0 Weight 168 lb 3.403 oz 167 lb 15.876 oz 168 lb 1.287 oz 168 lb 1.287 oz Constitutional Constitutional: no acute distress Comments: He sleeps at intervals during exam *Routine Respiratory Exam Respiratory: Present CTA bilaterally (Anteriorly and posteriorly) *Routine Cardiovascular Exam Cardiovascular: Present RRR *Routine Abdominal Exam Abdominal: Present soft and normoactive bowel sounds; Absent tenderness or distended *Routine Extremities Exam Extremities: Absent edema *Routine Neurological Exam Neurological: Present alert; Absent oriented X3 Assessment and Plan *Assessment and plan (1) Acute delirium: Status: Acute Category: Medical Code(s): R41.0 - Disorientation, unspecified (2) COVID-19: Status: Acute Category: Medical Code(s): U07.1 - COVID-19 (3) SIRS (systemic inflammatory response syndrome): Status: Acute Category: Medical Code(s): R65.10 - Systemic inflammatory response syndrome (SIRS) of non-infectious origin without acute organ dysfunction (4) Parkinsons disease: Status: Acute Category: Medical Code(s): G20 - Parkinson's disease (5) Type 2 diabetes mellitus: Status: Acute Category: Medical Code(s): E11.9 - Type 2 diabetes mellitus without complications (6) Hypertension: Status: Acute Category: Medical Code(s): I10 - Essential (primary) hypertension (7) Lewy body dementia: Status: Acute Category: Medical Code(s): G31.83 - Dementia with Lewy bodies; F02.80 - Dementia in other diseases classified elsewhere without behavioral disturbance (8) REGINO (obstructive sleep apnea): Status: Acute Category: Medical Code(s): G47.33 - Obstructive sleep apnea (adult) (pediatric) Plan Will be transferred to [facility] facility for ongoing care and rehab. Assessment and plan all Dx Plan of Treatment: Patient seen and examined. Concur with above. His mental and physical condition should benefit from skilled care rehab.
--- NOTE | 2022-07-17 10:19 | PC.NURSE ---
Rounded on pt, cleaned and straightened room. Pt changed at this time. Pt in bed resting with bed alarm active. at bedside, no needs voiced at this time.
[2022-07-17 11:04] VITALS: BP 149/79; PULSE 73; RESP 17; TEMP 36.6; O2SAT 96
[2022-07-17 12:01] LABS: POC Glucose,Bedside 165 (70-110)
--- NOTE | 2022-07-17 13:05 | PC.NURSE ---
PT IS BEING DISCHARGED TO [facility]. ALERT TO SELF ONLY. PT WAS UNABLE TO SWALLOW PILLS WITH WATER THIS MORNING. TOLERATED TAKING MEDS CRUSHED WITH APPLESAUCE. REPORT WAS CALLED TO [facility]. AMBULANCE WAS NOTIFIED ABOUT TRANSFER. PT'S ASSISTED PT WITH HIS LUNCH. PT HAS BEEN INCONTINENT OF BOWEL AND BLADDER SINCE ADMISSION AND HAS BEEN A MAX ASSIST WITH TRANSFERS WHICH WAS REPORTED TO [facility].
== END 2022-07-17 13:19 | DRG 179 ==
LOC: ER 20:55 → 2ND 22:58
PROVIDERS: Admitting Provider Family Medicine; Emergency Provider Emergency Medicine; PCP Family Medicine; Visit Provider Family Medicine
DX: U07.1 COVID-19 (principal); E11.9 Type 2 diabetes mellitus without complications; Z79.4 Long term (current) use of insulin; I10 Essential (primary) hypertension; G31.83 Neurocognitive disorder with Lewy bodies; F02.80 Dementia in other diseases classified elsewhere, unspecified severity, without behavioral disturbance, psychotic disturbance, mood disturbance, and anxiety; G20 Parkinson's disease; J44.9 Chronic obstructive pulmonary disease, unspecified; E78.5 Hyperlipidemia, unspecified; Z87.891 Personal history of nicotine dependence; G47.33 Obstructive sleep apnea (adult) (pediatric)
CPT/HCPCS: 36415; 71045; 80048; 80053; 81001; 82962; 83605; 83735; 84145; 85007; 85025; 85651; 86140; 87040; 94640; 97110; 97116; 97129; 97130; 97163; 97530; C9803; U0003; U0005

== ENCOUNTER 2022-09-10 14:52 | Observation (INO) | payer MEDICARE, SELFPAY ==
[2022-09-10] VITALS (10 sets, daily range): BP systolic 130–149; BP diastolic 62–75; PULSE 70–85; RESP 16–19; TEMP 36.9–37.1; O2SAT 94–99; BMI 24.3; BMI 24.1
--- NOTE | 2022-09-10 15:22 | XR_ITS ---
PROCEDURE INFORMATION: Exam: XR Chest Exam date and time: 09/10/2022 4:13 PM Age: 77 years old Clinical indication: Other: Weakness, lethargy TECHNIQUE: Imaging protocol: Radiologic exam of the chest. Views: 1 view. COMPARISON: CR XR CHEST PORTABLE 07/07/2022 9:10 PM FINDINGS: Lungs: There is no pulmonary vascular congestion. There is no evidence of focal alveolar consolidation. Pleural spaces: There are no pleural effusions. There is no evidence of pneumothorax. Heart/Mediastinum: The cardiac silhouette is within normal limits. Bones/joints: No acute osseous abnormality is identified. IMPRESSION: No acute cardiopulmonary disease identified.
[2022-09-10 15:37] LABS: Alanine Aminotransferase 9 U/L (12-78); Albumin Level 3.4 g/dl (3.5-5.0); Albumin/Globulin Ratio 1.1 (1.1-1.8); Alkaline Phosphatase 158 U/L (38-126); Aspartate Amino Transferase 18 U/L (17-59); Bilirubin,Total 0.6 mg/dl (0.2-1.3); Blood Urea Nitrogen 21 mg/dl (9-20); Calcium 8.8 mg/dl (8.4-10.2); Carbon Dioxide 28 mmol/L (22.0-30.0); Chloride 98 mmol/L (98-107); Creatinine Clearance Estimated 70 mL/min (50-200); Estimated Glomerular Filt Rate 93 ml/min (>60); GFR (African American) 113 ML/MIN (>60); Globulin 3.2 g/dL (1.3-3.2); Glucose 322 mg/dl (74-100); Sodium 136 mmol/L (136-145); Total Protein,Serum 6.6 g/dl (6.3-8.2)
[2022-09-10 15:41] LABS: Basophils % 0.7 % (0.1-2.0); Eosinophils # 0.1 K/mm3 (0.0-0.4); Eosinophils % 2.2 % (0.1-12.0); Hematocrit 30.3 % (42.0-52.0); Hemoglobin 9.6 g/dL (14.1-18.0); Lymphocytes # 1.2 K/mm3 (0.7-4.5); Lymphocytes % 19.7 % (10-50); Mean Corpuscular HGB Conc 31.7 g/dL (31.8-35.4); Mean Corpuscular Hemoglobin 28.9 pg (27.0-31.2); Mean Corpuscular Volume 91.4 fl (80-94); Mean Platelet Volume 8.3 fl (7.4-10.4); Monocytes # 0.4 K/mm3 (0.1-1.0); Monocytes % 5.6 % (1.7-9.3); Neutrophils # 4.5 K/mm3 (1.8-7.8); Neutrophils % 71.8 % (37.0-80.0); Platelet Count 295 K/mm3 (142-424); Red Blood Count 3.31 M/mm3 (4.60-6.20); Red Cell Distribution Width 13.7 % (11.5-17.5); White Blood Count 6.3 K/mm3 (4.8-10.8)
[2022-09-10 15:55] LABS: Troponin I < 0.01 ng/ml (0.00-0.034)
[2022-09-10 16:15] LABS: Adenovirus F 40/41, stool Not Detected (NotDetected); Astrovirus Not Detected (NotDetected); Campylobacter Not Detected (NotDetected); Cryptosporidium Not Detected (NotDetected); Cyclospora Cayetanesis Not Detected (NotDetected); Entamoeba histolytica Not Detected (NotDetected); Enteroaggregative E coli Not Detected (NotDetected); Enteropathogenic E coli Not Detected (NotDetected); Enterotoxigenic E coli Not Detected (NotDetected); Giardia lamblia Not Detected (NotDetected); Microscopic, Urine URINE MICROSCOPIC (MICROSCOPIC); Norovirus Not Detected (NotDetected); Plesimonas Shigalloides, PCR Not Detected (NotDetected); Rotavirus A Not Detected (NotDetected); Salmonella, PCR Not Detected (NotDetected); Sapovirus Not Detected (NotDetected); Shiga-like toxin E coli Not Detected (NotDetected); Shigella Enterovasive E coli Not Detected (NotDetected); Vibrio Cholerae Not Detected (NotDetected); Vibrio, PCR Not Detected (NotDetected); Yersinia Entercolitica, PCR Not Detected (NotDetected)
[2022-09-10 16:17] LABS: Coronavirus 19, PCR Not Detected (NotDetected); Influenza A, PCR Not Detected (NotDetected); Influenza B, PCR Not Detected (NotDetected)
[2022-09-10 16:29] LABS: Appearance,Urine CLEAR (Clear); Bilirubin,Urine Negative (Negative); Blood, Urine Negative (Negative); Color,Urine YELLOW (Yellow); Glucose,Urine (UA) 3+ (Negative); Ketones,Urine Negative (Negative); Leukocyte Esterase,Urine Negative (Negative); Nitrate,Urine Negative (Negative); PH,Urine 5.5 (5.0-8.5); Protein,Urine Negative (Negative); Specific Gravity, Urine 1.025 (1.005-1.030); Urobilinogen,Urine 0.2 EU/dl (0.2)
--- NOTE | 2022-09-10 17:01 | HMH.EDWEAK ---
Discharge Plan Disposition Patient Disposition: Admitted as Observation Clinical Impressions Clinical Impression: Type 2 diabetes mellitus, Parkinsons disease, Anemia, Enteritis Discharge ED Provider: Davy Frausto Weakness HPI General Chief complaint: Weakness Stated complaint: Dr. mcneal, dizzy, diahrrea, weak Time Seen by Provider: 09/10/22 15:15 Mode of Arrival: Wheelchair Source of Information: Patient, Relative and Medical Record Limitations: No Limitations Description of Symptoms (Recalled from ER Triage Doc. by RN): Pt sent from neuro appt r/t weakness, lethargy and diarrhea x3 days. Reports incontinence of bowel and bladder History of Present Illness HPI Narrative: progressive weakness over the last few days with assoc nonbldy diarrhea - pt was at neuro f/u and noted to be dizzyness and generalized weakness - MD Complaint: generalized weakness Onset (ago): day(s) Duration: constant Location: generalized Migration: none Severity: moderate Associated symptoms: denies other symptoms Related Data Home Medications Medication Instructions Recorded Confirmed acetaminophen 325 mg capsule 650 mg PO QID PRN 09/10/22 09/10/22 (Tylenol) apixaban 2.5 mg tablet (Eliquis) 2.5 mg PO BID 09/10/22 09/10/22 carboxymethylcellulose sodium 1 drp ophthalmic (eye) BID 09/10/22 09/10/22 (Refresh Contacts eye drops) clonidine 0.2 mg/24 hr weekly 1 patch transdermal WEEKLY 09/10/22 09/10/22 transdermal patch clonidine HCl 0.1 mg tablet 0.1 mg PO HS PRN 09/10/22 09/10/22 doxazosin 8 mg tablet 8 mg PO DAILY 09/10/22 09/10/22 ferrous sulfate 325 mg (65 mg 325 mg PO BID 09/10/22 09/10/22 iron) tablet insulin glargine 100 unit/mL (3 18 unit SQ BID 09/10/22 mL) subcutaneous pen (Lantus Solostar U-100 Insulin) melatonin 3 mg capsule 2 mg PO HS 09/10/22 09/10/22 nifedipine 60 mg tablet,extended 60 mg PO DAILY 09/10/22 09/10/22 release 24 hr spironolactone 25 mg tablet 25 mg PO DAILY 09/10/22 09/10/22 Previous Rx's Medication Instructions Recorded ascorbic acid (vitamin C) 500 mg 500 mg PO BID Supplement #30 tabs 07/17/22 tablet budesonide-formoterol HFA 160 1 puff inhalation BID COPD #10.2 07/17/22 mcg-4.5 mcg/actuation aerosol grams inhaler carbidopa ER 36.25 mg-levodopa 145 1 cap PO TID #90 caps 07/17/22 mg capsule,extended release Allergies Allergy/AdvReac Type Severity Reaction Status Date / Time Sulfa (Sulfonamide Allergy Verified 09/10/22 13:10 Antibiotics) PFSH PFS Social History Smoking Status: Never smoker alcohol intake: never substance use type: denies use current occupational status: retired Travel in the last 8 weeks: None household members: spouse housing: house number of children: 1 caffeine: Yes ROS Obtained: Yes All systems reviewed & no additional complaints except as documented Constitutional Constitutional: Denies fever(s) and Reports weakness Eyes Eyes: Denies diplopia ENT Ears, Nose, Mouth, and Throat: Denies dizziness Cardiovascular Cardiovascular: Denies chest pain with activity Respiratory Respiratory: Denies chest congestion Gastrointestinal Gastrointestingal: Reports diarrhea and fecal incontinence; Denies melena Neurologic Neurologic: Denies dizziness and Reports weakness Physical Exam General General appearance: alert and lethargic Head Head exam: normocephalic Eye Eye exam: Present PERRL and EOMI; Absent scleral icterus ENT ENT exam: Present mucous membranes dry Neck Neck exam: Present trachea midline Respiratory Respiratory exam: Absent respiratory distress Cardiovascular Cardiovascular exam: Present regular rate, systolic murmur and +S4 Abdominal Exam Abdominal exam: Present soft Extremities Exam Extremities exam: Absent tenderness Neurological Exam Neurological exam: Present alert, oriented X3 and CN II-XII intact Psychiatric Psychiatric exam: Present normal affect Skin Skin exam: Absent rash Medical De
[2022-09-10 17:21] LABS: Bacteria,Urine Trace /lpf; WBC,Urine Occasional #/hpf (0-3)
--- NOTE | 2022-09-10 17:35 | PC.NURSE ---
speaking with Dr. Avilez
--- NOTE | 2022-09-10 17:36 | PC.NURSE ---
Called lab to check on status of diarrhea results. Advised they were fixing to start it.
--- NOTE | 2022-09-10 18:23 | PC.NURSE ---
SUPPER TRAY ORDERED FOR PT
--- NOTE | 2022-09-10 18:33 | PC.NURSE ---
lab at bedside, collecting blood. Rounded on pt at this time. advised they were ok with no new needs. Dietary delivered tray at this time and pt was sitting up in bed eating.
[2022-09-10 19:18] LABS: Clostridium Difficile A/B, PCR Detected (NotDetected)
--- NOTE | 2022-09-10 19:19 | PC.NURSE ---
+ Cdif reported to MD Jett at this time.
[2022-09-10 19:22] LABS: Troponin I < 0.01 ng/ml (0.00-0.034)
--- NOTE | 2022-09-10 19:44 | ECG_ITS ---
APPROVED REPORT Exam: Resting ECG HR:91 bpm ECG Measurements Heart Rate 91 AXES IL 171 P 48 QRSd 78 QRS 22 QT 262 T 55 QTc 311 Conclusion SINUS RHYTHM SEPTAL MYOCARDIAL INFARCTION , PROBABLY OLD [40+ ms Q WAVE IN V1/V2] ABNORMAL ECG UNCONFIRMED REPORT Electronically signed by : Joe Palmer MD 09/11/2022 20:03:33
--- NOTE | 2022-09-10 19:47 | PC.NURSE ---
Called report to 2nd floor. Updated and pt on POC
--- NOTE | 2022-09-10 20:00 | PC.NURSE ---
PT ARRIVED TO FLOOR VIA STRETCHER @ 2004.
[2022-09-10 20:20] LABS: Occult Blood,Stool Positive (Negative)
[2022-09-10 22:04] LABS: POC Glucose,Bedside 300 (70-110)
--- NOTE | 2022-09-10 23:00 | PC.NURSE ---
2330: SPOKE WITH DR. AVILA TO INFORM HIM THAT PATIENT HAS BEEN COMBATIVE, AGITATED, PULLING OUT IV'S. HE WON'T ALLOW US TO CHANGE HIS ATTENDS. REVIEWED MEDICATION ORDERS ON JAN. DR. AVILA ORDERED ATIVAN 0.5MG IVP X1 NOW. DR. AVILA ALSO STATED TO CHANGE INSULIN LISPRO REGIMEN FROM JOE TO HISS AND TO CHECK PATIENT'S GLUCOSE AT 0100 AND COVER WITH HISS. NOTIFIED IFEOMA, PATIENT'S PRIMARY RN.
[2022-09-11 02:30] LABS: POC Glucose,Bedside 61 (70-110)
[2022-09-11 04:00] VITALS: BP 144/83; PULSE 90; RESP 16; TEMP 37.4; O2SAT 97
[2022-09-11 05:38] LABS: POC Glucose,Bedside 71 (70-110)
--- NOTE | 2022-09-11 05:41 | PC.NURSE ---
unable to obtain weight this morning due to bed scale not functioning right. bed alarm also stopped working, pull alarm has been placed.
--- NOTE | 2022-09-11 05:50 | PC.NURSE ---
Pt has been very confused and combative with staff t/o shift. made aware. Ativan administered, pt able to rest after administration. Pt has had multiple black tarry stools during shift. Pt incontinent. Smith cath in place draining clear yellow urine. Pull alarm in place for safety. Mits in place due to pt pulling at catheter/IV.
[2022-09-11 06:52] LABS: Basophils # 0.1 K/mm3 (0-0.2); Basophils % 0.8 % (0.1-2.0); Eosinophils # 0.2 K/mm3 (0.0-0.4); Eosinophils % 3.1 % (0.1-12.0); Hematocrit 27.2 % (42.0-52.0); Hemoglobin 9.2 g/dL (14.1-18.0); Lymphocytes # 1.3 K/mm3 (0.7-4.5); Lymphocytes % 21.2 % (10-50); Mean Corpuscular Hemoglobin 29.5 pg (27.0-31.2); Mean Platelet Volume 8.4 fl (7.4-10.4); Monocytes # 0.4 K/mm3 (0.1-1.0); Monocytes % 6.3 % (1.7-9.3); Neutrophils # 4.3 K/mm3 (1.8-7.8); Neutrophils % 68.5 % (37.0-80.0); Platelet Count 299 K/mm3 (142-424); Red Blood Count 3.13 M/mm3 (4.60-6.20); Red Cell Distribution Width 14.2 % (11.5-17.5); White Blood Count 6.3 K/mm3 (4.8-10.8)
[2022-09-11 07:09] LABS: Chloride 104 mmol/L (98-107); Potassium 3.3 mmoL/L (3.5-5.1); Sodium 138 mmol/L (136-145)
[2022-09-11 07:12] LABS: Anion Gap 10.3 mEq/L (5-15); Blood Urea Nitrogen 15 mg/dl (9-20); Calcium 8.4 mg/dl (8.4-10.2); Carbon Dioxide 27 mmol/L (22.0-30.0); Creatinine Clearance Estimated 70 mL/min (50-200); Estimated Glomerular Filt Rate 109 ml/min (>60); GFR (African American) 132 ML/MIN (>60); Glucose 64 mg/dl (74-100); Magnesium 1.8 mg/dl (1.6-2.3)
[2022-09-11 07:18] VITALS: BP 157/61; PULSE 79; RESP 18; TEMP 36.8; O2SAT 100
--- NOTE | 2022-09-11 07:59 | HMH.PHAINT1 ---
Pharmacy Intervention Comments: Home medication reconciliation completed using outpatient pharmacy fill history.
--- NOTE | 2022-09-11 08:45 | EXP.HP ---
History of Present Illness *Admission Date: 09/10/22 *Reason for visit:: DiarrheaWeakness and dizziness.. *History of present illness: Mr. Owusu is a 77-year-old male patient with a history of type 2 diabetes mellitus, ulcerative colitis, dyslipidemia, paroxysmal atrial fib., Sleep apnea, hypertension, prostate cancer followed by Dr. Jodee salvador, Lewy body dementia followed by Dr. Bear, and acute renal failure requiring temporary dialysis in July 2022 at [place]. Following is the note from emergency room visit.: General Chief complaint: Weakness Stated complaint: deonna Sparrow, diahrrea, weak Time Seen by Provider: 09/10/22 15:15 Mode of Arrival: Wheelchair Source of Information: Patient, Relative and Medical Record Limitations: No Limitations Description of Symptoms (Recalled from ER Triage Doc. by RN): Pt sent from neuro appt r/t weakness, lethargy and diarrhea x3 days. Reports incontinence of bowel and bladder History of Present Illness HPI Narrative: progressive weakness over the last few days with assoc nonbldy diarrhea - pt was at neuro f/u and noted to be dizzyness and generalized weakness - MD Complaint: generalized weakness Onset (ago): day(s) Duration: constant Location: generalized Migration: none Severity: moderate Associated symptoms: denies other symptoms Further note fron [facility]: patient was hospitalized at in June with COVID and general debilitation. From there he was discharged to [facility] in [place] for rehab. A few days after admission to the [facility] he became more lethargic and confused and was found to be in acute renal failure. He was then transferred to [facility] where he required temporary dialysis. The cause of the reef renal failure was not determined. After 10 days he was transferred back to [facility] for ongoing therapy and then was discharged home on 08/23/2022. Last creatinine was 0.9. With this visit to [facility] on 08/24/2022 the noted that his dementia had worsened. He was not making any progress with therapy and was unable to transfer independently. Appetite at this time was improving. He was having loose stools but was noted to be on 3 different bowel medications. He remained incontinent of urine. On this date his Flomax was discontinued as well as metformin and Tradjenta. He was continued with his Lantus and sliding scale. After admission to the floor patient became combative. He required some Ativan after which she became sedated. He does have mittens on. He will open his eyes and try to talk but mumbles. Information for HPI is obtained from records and ER visit. [facility] Medical History (Updated 09/11/22 @ 10:40 by Ganesh Avilez MD) Atrial fibrillation Prostate cancer Social History (Updated 09/10/22 @ 20:36 by Nelda Camarillo RN) Smoking Status: Never smoker alcohol intake: never substance use type: denies use current occupational status: retired Travel in the last 8 weeks: None household members: spouse housing: house number of children: 1 caffeine: Yes Review of Systems Review of Systems Review of systems:: unable to obtain (Due to sedation) Constitutional Constitutional: Reports weakness ENT Ears, Nose, Mouth, and Throat: Denies dizziness *Neurologic Neurologic: Denies dizziness and Reports weakness Meds Home Medications and Allergies Home Medications Medication Instructions Recorded Confirmed Type ascorbic acid (vitamin C) 500 mg 500 mg PO BID Supplement #30 tabs 07/17/22 09/10/22 Rx tablet carbidopa ER 36.25 mg-levodopa 145 1 cap PO TID #90 caps 07/17/22 09/10/22 Rx mg capsule,extended release acetaminophen 325 mg capsule 650 mg PO QID PRN Mild Pain (Scale 09/10/22 09/10/22 History (Tylenol) Score 1-4) apixaban 2.5 mg tablet (Eliquis) 2.5 mg PO BID CAD 09/10/22 09/10/22 History carboxymethylcellulose sodium 1 drp [facility]
[2022-09-11 10:49] VITALS: BMI 24.0
[2022-09-11 12:22] LABS: POC Glucose,Bedside 73 (70-110)
--- NOTE | 2022-09-11 14:09 | DIET.NUTRFU ---
spoke to this afternoon, ate 1/2 roast beef, 1/3 carrots, couple bites of corn chips and 100% rice krispies. She fed him secondary to mittens, but he is independent with feeding at home. Reviewed weight changes and she did report him drinking the glucerna since last admit-likes all flavors.
[2022-09-11 15:22] VITALS: BP 152/66; PULSE 76; RESP 17; TEMP 37.6; O2SAT 100
--- NOTE | 2022-09-11 15:34 | PC.NURSE ---
Patient is alert to person and place but not situation or time. Mittens still in place as patient is still pulling at lines and resisting staff during clean up of bowels. Fluids switched to maintain potassium and blood sugar. VS stable and patient remained on room air. Patient turned q2 but moves around in the bed constantly. Bowel movements are black and formed. No other changes noted.
[2022-09-11 16:32] LABS: POC Glucose,Bedside 222 (70-110)
[2022-09-11 20:00] VITALS: BP 175/77; PULSE 76; RESP 17; O2SAT 96
[2022-09-11 20:56] LABS: POC Glucose,Bedside 106 (70-110)
[2022-09-12 04:00] VITALS: BP 152/81; PULSE 74; RESP 18; TEMP 37.1; O2SAT 97
[2022-09-12 05:54] LABS: POC Glucose,Bedside 192 (70-110)
--- NOTE | 2022-09-12 07:25 | PC.NURSE ---
Pt has been confused/combative toward staff t/o majority of shift. Mits in place. MD component assembler made aware. 0.25 mg PO Ativan administered per JAN. Pt has been more pleasant after administered. Smith in place. Call light within reach.
--- NOTE | 2022-09-12 07:46 | EXP.ACUTE.PN ---
Subjective *Date: 09/12/22 *Time: 07:46 Interval history: Patient states he was up most of the night. He was combative and did receive a small dose of Ativan. Medical Exam Vital signs and Labs for Last 24 Hours: Vital Signs Temp Pulse Resp BP Pulse Ox 09/12/22 04:00 98.8 F 74 18 152/81 H 97 09/11/22 20:00 76 17 175/77 H 96 09/11/22 15:22 99.7 F H 76 17 152/66 H 100 Intake and Output 09/11/22 09/11/22 09/12/22 15:59 23:59 07:59 Intake Total 240 / 2402 1301 / 2402 1078 / 1078 Output Total 800 / 3500 0 / 0 1999 Balance -560 / -1098 1301 / -1098 -922 / -922 Intake: Intake, Oral Amount 240 / 300 60 / 300 Intake, Total IV Amount 1241 / 2102 1078 / 1078 D5W/0.45% NaCl w/40mEq KCl 1, 1241 / 1241 878 / 878 000 ml @ 100 mls/hr IV .Q10H MICHELE Rx#:[id number] Metronidaz/Sod Chl 500 mg In 200 / 200 100 ml @ 100 mls/hr IV Q8H MICHELE Rx#:[id number] Output: Output, Urine Amount 0 / 2700 0 / 2700 1999 Output, Urine Amount (Catheter) 800 / 800 Smith 800 / 800 Other: Number of Unmeasured Voids 0 0 0 Number of Bowel Movements 2 Weight 178 lb 0.725 oz Laboratory Results - last 24 hr 09/11/22 11:33: POC Glucose 73 09/11/22 16:21: POC Glucose 222 H 09/11/22 20:18: POC Glucose 106 09/12/22 05:29: POC Glucose 192 H I & O for Labs for Last 24 Hours: Intake & Output 09/09/22 09/10/22 09/11/22 09/12/22 23:59 23:59 23:59 23:59 Intake Total 2402 / 2402 1078 / 1078 Output Total 2050 / 3500 1999 Balance 352 / -1098 -922 / -922 Weight 178 lb 2 oz 178 lb 0.725 oz Constitutional: Present no acute distress and chronically ill appearing Respiratory: Present decreased breath sounds (in bases) and CTA bilaterally Cardiac: Present Reg Rate and Rhythm GI: Present soft and normal bowel sounds; Absent tenderness Neuro: Present alert and awake Assessment and Plan *Assessment and plan (1) Acute delirium: Status: Acute Category: Medical Code(s): R41.0 - Disorientation, unspecified (2) Parkinsons disease: Status: Acute Category: Medical Code(s): G20 - Parkinson's disease (3) Type 2 diabetes mellitus: Status: Acute Category: Medical Code(s): E11.9 - Type 2 diabetes mellitus without complications (4) Hypertension: Status: Acute Category: Medical Code(s): I10 - Essential (primary) hypertension (5) Lewy body dementia: Status: Chronic Category: Medical Code(s): G31.83 - Neurocognitive disorder with Lewy bodies; F02.80 - Dementia in other diseases classified elsewhere, unspecified severity, without behavioral disturbance, psychotic disturbance, mood disturbance, and anxiety (6) REGINO (obstructive sleep apnea): Status: Chronic Category: Medical Code(s): G47.33 - Obstructive sleep apnea (adult) (pediatric) (7) Dementia: Status: Acute Category: Medical Code(s): F03.90 - Unspecified dementia, unspecified severity, without behavioral disturbance, psychotic disturbance, mood disturbance, and anxiety (8) Anemia: Status: Acute Category: Medical Code(s): D64.9 - Anemia, unspecified (9) Enteritis: Status: Acute Category: Medical Code(s): K52.9 - Noninfective gastroenteritis and colitis, unspecified (10) C. difficile colitis: Status: Acute Category: Medical Code(s): A04.72 - Enterocolitis due to Clostridium difficile, not specified as recurrent (11) Severe protein-calorie malnutrition: Status: Acute Category: Medical Code(s): E43 - Unspecified severe protein-calorie malnutrition (12) Heme positive stool: Status: Acute Category: Medical Code(s): R19.5 - Other fecal abnormalities (13) Hypokalemia: Status: Acute Category: Medical Code(s): E87.6 - Hypokalemia Plan Patient seems a tone
[2022-09-12 07:55] VITALS: BP 144/68; PULSE 85; RESP 17; TEMP 36.4; O2SAT 94
[2022-09-12 09:03] LABS: Basophils % 0.8 % (0.1-2.0); Eosinophils # 0.2 K/mm3 (0.0-0.4); Eosinophils % 3.5 % (0.1-12.0); Hematocrit 28.8 % (42.0-52.0); Hemoglobin 9.9 g/dL (14.1-18.0); Lymphocytes # 1.1 K/mm3 (0.7-4.5); Lymphocytes % 21.3 % (10-50); Mean Corpuscular HGB Conc 34.3 g/dL (31.8-35.4); Mean Corpuscular Hemoglobin 29.9 pg (27.0-31.2); Mean Corpuscular Volume 87.2 fl (80-94); Mean Platelet Volume 8.3 fl (7.4-10.4); Monocytes # 0.4 K/mm3 (0.1-1.0); Monocytes % 7.4 % (1.7-9.3); Neutrophils # 3.3 K/mm3 (1.8-7.8); Platelet Count 312 K/mm3 (142-424); Red Blood Count 3.31 M/mm3 (4.60-6.20); Red Cell Distribution Width 14.2 % (11.5-17.5)
[2022-09-12 09:07] LABS: Chloride 101 mmol/L (98-107); Potassium 3.9 mmoL/L (3.5-5.1); Sodium 135 mmol/L (136-145)
[2022-09-12 09:10] LABS: Anion Gap 10.9 mEq/L (5-15); Blood Urea Nitrogen 10 mg/dl (9-20); Calcium 8.3 mg/dl (8.4-10.2); Carbon Dioxide 27 mmol/L (22.0-30.0); Creatinine Clearance Estimated 70 mL/min (50-200); Estimated Glomerular Filt Rate 109 ml/min (>60); GFR (African American) 132 ML/MIN (>60); Glucose 174 mg/dl (74-100)
--- NOTE | 2022-09-12 11:19 | HMH.PTEV ---
Physical Therapy Evaluation Rehab PT IP Evaluation Start: 09/12/22 08:41 Freq: ONCE Status: Active Protocol: Document 09/12/22 11:12 PHORNE (Rec: 09/12/22 11:19 PHORNE [id number]) Subjective/History History History 77 yowm adm to [facility] with increased weakness and several days of diarrhea. Baseline pt suffers from multiple co- morbidities including lewy- body dementia and requires assistance with all ADLs. He has been improving his strength and mobility with HHPT/OT according to his spouse. Subjective Subjective Currently pt c/o feeling tired , but has no c/o pain. Somewhat more confused than baseline, but improved from yesterday. Rehab PT IP Eval Objective Appearance Patient Behavior Appropriate,Guarded, Distractible,Confused Patient Orientation Person,Place,Birthday Difficulty following instructions moderate Speech Pattern Coherent,Rambling Ambulation Patient Able to Ambulate Yes Ambulation Observation IP General Gait Pattern Observation Wide Based Gait,Shuffling Step Ambulation Distance (feet) 3 Ambulation Assistive Device None Ambulation Ability Moderate x 1 (50% assist) Balance Ability to Arise Able, uses arms to help Sitting Balance Steady, safe Standing Balance Steady, wide stance Dynamic Sitting Balance Ability Fair Dynamic Standing Balance Ability Fair Transfers Bed Transfer Ability Moderate x 2 (50% assist) Chair Transfer Ability Moderate x 2 (50% assist) Sit to Stand Bed Transfer Ability Moderate x 2 (50% assist) Sit to Stand Chair Transfer Ability Moderate x 2 (50% assist) Rehab PT IP prob,goals,plan Problems Date of Evaluation: 09/12/22 PT IP Problems Bed Mobility,Transfers,Gait Rehab Potential Rehab Potential Good Plan PT Intervention Plan Bed Mobility,Transfers,Gait, Therapeutic Exercise PT Plan Frequency BID Duration LOS Discharge Goals Bed Transfer Ability Minimal x 2 (25% assist) Sit to Stand Chair Transfer Ability Minimal x 2 (25% assist) Ambulation Assistive Device None Ambulation Distance (feet) 10 Discharge Plan PT Discharge Plan Pt is currently most appropriate for rehab
--- NOTE | 2022-09-12 11:30 | HMH.OTEV ---
OT Inpatient Evaluation Rehab OT IP Evaluation Start: 09/12/22 08:41 Freq: ONCE Status: Complete Protocol: Document 09/12/22 11:23 [facility] (Rec: 09/12/22 11:30 [facility] [id number]) Rehab OT IP Assessment Subjective History Pt oriented x 3 on arrival. Pt's present and supportive during therapy evaluation. Pt was admitted via ED on on 09/10/22 due to diarrhea and weakness. Pt has a past medical history of lewy-body dementia. Normally at his baseline pt required assistance from his for completion of all ADLs. He is dependent upon her for all IADLs. Pt has been receiving Home health PT and OT after returning home from short term rehab on 08/23/22. Subjective Don't take my covers. Objective Patient Orientation Person,Place,Birthday Upper Extremity Gross ROM Min Limitation <25% Shoulder ROM Limitations Muscle Weakness Elbow ROM Limitations Muscle Weakness Wrist Limitations of Range of Motion Muscle Weakness Bed Mobility bed mobility-scooting,bed mobility - supine/sit,bed mobility - rolling Assist Level Moderate x 2 (50% assist) Transfer Training Sit/Stand Transfer Chair Transfer Ability Moderate x 2 (50% assist) Rehab OT IP prob,goals,plan Problems Date of Evaluation: 09/12/22 OT IP Problems Bed Mobility,Transfers,Balance ,Self care,Safety Rehab Potential Rehab Potential Good Equipment Needs Assistive Devices Rolling / Wheeled Walker Plan OT intervention Plan Bed Mobility,Gait,Balance,Self care,Safety,Therapeutic Exercise OT Plan Frequency BID Duration LOS Discharge Goals Bed Mobility Ability Assistance x1 Sit to Stand Chair Transfer Ability Minimal x 2 (25% assist) Chair Transfer Ability Minimal x 2 (25% assist) Chair Transfer Technique Sit to/from Ambulatory Chair Transfer Assistive Devices Rolling Walker Feeding Ability Assist with Tray Set Up Lower Body Dressing Ability Assistance X1 Upper Body Dressing Ability Assistance X1 Bathing Ability Assistance x1 Performing Toilet Hygiene Ability Assistance X1 Overall
[2022-09-12 12:43] LABS: POC Glucose,Bedside 281 (70-110)
[2022-09-12 15:41] VITALS: BP 110/59; PULSE 78; RESP 18; TEMP 36.9; O2SAT 96
[2022-09-12 17:54] LABS: POC Glucose,Bedside 273 (70-110)
[2022-09-12 19:43] VITALS: BP 126/64; PULSE 88; RESP 18; TEMP 37.1; O2SAT 97
--- NOTE | 2022-09-12 20:23 | PC.NURSE ---
pt has been confuse this shift, bed alarm in place. did spend some time up to chair but required pam lift to get back into bed because he was unable to stand. solis cath in place to bed side drain.
[2022-09-12 21:30] LABS: POC Glucose,Bedside 134 (70-110)
[2022-09-13 03:54] VITALS: BP 138/58; PULSE 83; RESP 18; TEMP 36.9; O2SAT 95
[2022-09-13 03:59] VITALS: BMI 23.3
--- NOTE | 2022-09-13 05:14 | PC.NURSE ---
NO ACUTE CHANGES SINCE PREVIOUS ASSESSMENT. PT HAS NOT RESTED WELL THIS SHIFT. LUNG SOUNDS REMAIN CLEAR. PT ONLY ALERT TO PERSON. PT HAS BEEN AGGRESSIVE AND COMBATIVE AT TIMES THIS SHIFT AND HAS CUSSED AT STAFF. PT HAS PULLED OUT 2 IV'S SINCE THE START OF SHIFT. PT NOW HAS MITTENS IN PLACE. BED ALARM IN PLACE FOR PT SAFETY.
[2022-09-13 05:47] LABS: POC Glucose,Bedside 279 (70-110)
[2022-09-13 08:00] VITALS: BP 113/45; PULSE 77; RESP 19; TEMP 37.6; O2SAT 98
--- NOTE | 2022-09-13 08:27 | EXP.ACUTE.PN ---
Subjective *Date: 09/13/22 *Time: 09:21 Interval history: Patient is sleeping this morning. His states he was able to stand and transfer into the chair yesterday with therapy but was unable to transfer back to the bed. They had to use a lift to get him into bed. She is concerned with his mobility and her ability to care for him at home. Medical Exam Vital signs and Labs for Last 24 Hours: Vital Signs Temp Pulse Resp BP Pulse Ox 09/13/22 03:54 98.4 F 83 18 138/58 L 95 09/12/22 19:43 98.7 F 88 18 126/64 97 09/12/22 15:41 98.5 F 78 18 110/59 L 96 Intake and Output 09/12/22 09/13/22 09/13/22 19:59 03:59 11:59 Intake Total 480 / 2046 1566 / 2046 Output Total 1800 / 2600 800 / 2600 Balance -1320 / -554 -800 / -554 1566 / -554 Intake: Intake, Oral Amount 480 / 480 Intake, Total IV Amount 1566 / 1566 D5W/0.45% NaCl w/40mEq KCl 1, 1566 / 1566 000 ml @ 100 mls/hr IV .Q10H [facility] Rx#:[id number] Output: Output, Urine Amount 1300 / 1300 Output, Urine Amount (Catheter) 500 / 1300 800 / 1300 Smith 500 / 1300 800 / 1300 Other: Number of Unmeasured Voids 1 0 Weight 172 lb 4 oz Patient Weight 09/13/22 11:59 Weight 172 lb 4 oz Laboratory Results - last 24 hr 09/12/22 08:28: WBC 5.0, RBC 3.31 L, Hgb 9.9 L, Hct 28.8 L, MCV 87.2, MCH 29.9, MCHC 34.3, RDW 14.2, Plt Count 312, MPV 8.3, Neut % (Auto) 67.0, Lymph % (Auto) 21.3, Randolph % (Auto) 7.4, Eos % (Auto) 3.5, Baso % (Auto) 0.8, Neut # (Auto) 3.3, Lymph # (Auto) 1.1, Randolph # (Auto) 0.4, Eos # (Auto) 0.2, Baso # (Auto) 0.0 09/12/22 08:28: Sodium 135 L, Potassium 3.9, Chloride 101, Carbon Dioxide 27, Anion Gap 10.9, BUN 10 D, Creatinine 0.70, Estimated Creat Clear 70, Estimated GFR 109, Est GFR ( Amer) 132, Glucose 174 H, Calcium 8.3 L 09/12/22 12:32: POC Glucose 281 H 09/12/22 17:31: POC Glucose 273 H 09/12/22 21:17: POC Glucose 134 H 09/13/22 05:38: POC Glucose 279 H I & O for Labs for Last 24 Hours: Intake & Output 09/10/22 09/11/22 09/12/22 09/13/22 11:59 11:59 11:59 11:59 Intake Total 861 / 861 2679 / 2679 2045 / 2045 Output Total 1250 / 1250 2800 / 2800 2600 / 2600 Balance -389 / -389 -121 / -121 -554 / -554 Weight 178 lb 0.725 oz 172 lb 4 oz Constitutional: Present no acute distress and chronically ill appearing (Sleeping and snoring during exam) Respiratory: Present decreased breath sounds (in bases) and CTA bilaterally Cardiac: Present Reg Rate and Rhythm GI: Present soft and normal bowel sounds; Absent tenderness Extremities: Absent edema Neuro: Present alert and awake Assessment and Plan *Assessment and plan (1) Acute delirium: Status: Acute Category: Medical Code(s): R41.0 - Disorientation, unspecified (2) Parkinsons disease: Status: Acute Category: Medical Code(s): G20 - Parkinson's disease (3) Type 2 diabetes mellitus: Status: Acute Category: Medical Code(s): E11.9 - Type 2 diabetes mellitus without complications (4) Hypertension: Status: Acute Category: Medical Code(s): I10 - Essential (primary) hypertension (5) Lewy body dementia: Status: Chronic Category: Medical Code(s): G31.83 - Neurocognitive disorder with Lewy bodies; F02.80 - Dementia in other diseases classified elsewhere, unspecified severity, without behavioral disturbance, psychotic disturbance, mood disturbance, and anxiety (6) REGINO (obstructive sleep apnea): Status: Chronic Category: Medical Code(s): G47.33 - Obstructive sleep apnea (adult) (pediatric) (7) Dementia: Status: Acute Category: Medical Code(s): F03.90 - Unspecified dementia, unspecified severity, without behavioral disturbance, psychotic disturbance, mood disturbance, and anxiety (8) Anemia: Status: Acute Category: Medical Code(s): D64.9 - Anemia, unspecified (9) Enteritis: St
--- NOTE | 2022-09-13 13:27 | DIET.NUTRFU ---
Meal intake reviewed, was poor yesterday with only bites at dinner. is present for most meals. She assists with meals and is aware of food alternates and supplements available. She plans to take him home with additional help. Will continue current POC with low sodium/diabetic diet and glucerna on trays
[2022-09-13 13:50] LABS: POC Glucose,Bedside 236 (70-110)
--- NOTE | 2022-09-13 14:13 | CARE MANAGER ---
I had a long conversation today, as well as yesterday, with spouse to discuss discharge options. I explained SNF vs ICF, as well has HH and Hospice services. Per Mrs. Owusu, I looked into cost for ICF bed. Dr. Avilez and I spoke with patient this morning regarding patient not being a good SNF candidate at this time. She stated that she wants to take the patient home and resume HH services at this time. I will take her over a sitters list and will talk to Dr. Avilez about adding an aide to discharge HH orders. I explained to Mrs. Owusu that if at any point she feels like she may want a hospice consult, she would just need to reach out to Dr. Avilez for that order. Patient is planned for discharge home with HH tomorrow.
[2022-09-13 15:55] VITALS: BP 130/99; PULSE 88; RESP 16; TEMP 36.7; O2SAT 92
--- NOTE | 2022-09-13 19:37 | PC.NURSE ---
NO CHANGE SINCE PREVIOUS ASSESSMENT. HAS NOT REQUIRED O2 SUPPORT. DELEON CATH IN PLACE TO BED SIDE DRAIN. DID SIT UP TO CHAIR FOR A WHILE THIS SHIFT. AT TIMES HE HAS BEEN COMBATIVE AND RESISTIVE TO CARE. HE WOULD NOT LET THIS RN OBTAIN BLOOD GLUCOSE AT 1630 THIS EVENING. HE WILL GRAB AT STAFF WHEN ORAL CARE IS BEING PERFORMED. HE HAS HAD MULTIPLE PASTY BM'S THIS SHIFT. .
[2022-09-13 19:42] VITALS: BP 159/75; PULSE 77; RESP 18; TEMP 37.1; O2SAT 96
[2022-09-13 22:26] LABS: POC Glucose,Bedside 245 (70-110)
[2022-09-14 03:35] VITALS: BP 142/70; PULSE 84; RESP 18; TEMP 36.9; O2SAT 94
[2022-09-14 03:41] VITALS: BMI 22.6
[2022-09-14 06:28] LABS: POC Glucose,Bedside 302 (70-110)
[2022-09-14 08:00] VITALS: BP 137/74; PULSE 84; RESP 18; TEMP 37.1; O2SAT 99
--- NOTE | 2022-09-14 08:17 | EXP.ACUTE.PN ---
Subjective *Date: 09/14/22 *Time: 09:04 Interval history: Patient is sleeping this morning. His just arrived and is trying to wake him up as he has not eaten any breakfast. Medical Exam Vital signs and Labs for Last 24 Hours: Vital Signs Temp Pulse Resp BP Pulse Ox 09/14/22 03:35 98.4 F 84 18 142/70 H 94 L 09/13/22 19:42 98.7 F 77 18 159/75 H 96 09/13/22 15:55 98.0 F 88 16 130/99 H 92 L Intake and Output 09/13/22 09/14/22 09/14/22 19:59 03:59 11:59 Intake Total 240 / 240 Output Total 1000 / 1800 800 / 1800 Balance 240 / -1560 -1000 / -1560 -800 / -1560 Intake: Intake, Oral Amount 240 / 240 Output: Output, Urine Amount (Catheter) 1000 / 1800 800 / 1800 Smith 1000 / 1800 800 / 1800 Other: Number of Unmeasured Voids 0 0 0 Weight 167 lb 6 oz Patient Weight 09/14/22 11:59 Weight 167 lb 6 oz Laboratory Results - last 24 hr 09/13/22 13:39: POC Glucose 236 H 09/13/22 20:31: POC Glucose 245 H 09/14/22 06:21: POC Glucose 302 H* I & O for Labs for Last 24 Hours: Intake & Output 09/11/22 09/12/22 09/13/22 09/14/22 11:59 11:59 11:59 11:59 Intake Total 861 / 861 2679 / 2679 2286 / 2286 240 / 240 Output Total 1250 / 1250 2800 / 2800 2600 / 2600 1800 / 1800 Balance -389 / -389 -121 / -121 -314 / -314 -1560 / -1560 Weight 178 lb 0.725 oz 172 lb 4 oz 167 lb 6 oz Constitutional: Present no acute distress and chronically ill appearing (Sleeping and snoring during exam) Respiratory: Present decreased breath sounds (in bases) and CTA bilaterally Cardiac: Present Reg Rate and Rhythm GI: Present soft and normal bowel sounds; Absent tenderness Extremities: Absent edema Comment:: sleeping Assessment and Plan *Assessment and plan (1) Acute delirium: Status: Acute Category: Medical Code(s): R41.0 - Disorientation, unspecified (2) Parkinsons disease: Status: Acute Category: Medical Code(s): G20 - Parkinson's disease (3) Type 2 diabetes mellitus: Status: Acute Category: Medical Code(s): E11.9 - Type 2 diabetes mellitus without complications (4) Hypertension: Status: Acute Category: Medical Code(s): I10 - Essential (primary) hypertension (5) Lewy body dementia: Status: Chronic Category: Medical Code(s): G31.83 - Neurocognitive disorder with Lewy bodies; F02.80 - Dementia in other diseases classified elsewhere, unspecified severity, without behavioral disturbance, psychotic disturbance, mood disturbance, and anxiety (6) REGINO (obstructive sleep apnea): Status: Chronic Category: Medical Code(s): G47.33 - Obstructive sleep apnea (adult) (pediatric) (7) Dementia: Status: Acute Category: Medical Code(s): F03.90 - Unspecified dementia, unspecified severity, without behavioral disturbance, psychotic disturbance, mood disturbance, and anxiety (8) Anemia: Status: Acute Category: Medical Code(s): D64.9 - Anemia, unspecified (9) Enteritis: Status: Acute Category: Medical Code(s): K52.9 - Noninfective gastroenteritis and colitis, unspecified (10) C. difficile colitis: Status: Acute Category: Medical Code(s): A04.72 - Enterocolitis due to Clostridium difficile, not specified as recurrent (11) Severe protein-calorie malnutrition: Status: Acute Category: Medical Code(s): E43 - Unspecified severe protein-calorie malnutrition (12) Heme positive stool: Status: Acute Category: Medical Code(s): R19.5 - Other fecal abnormalities (13) Hypokalemia: Status: Acute Category: Medical Code(s): E87.6 - Hypokalemia Plan I have spoken with care management and they state the patient is going to go home with home health. Glucose has been elevated. Will discuss further care with Dr. Avilez. Dr. Avilez entry - saw patient, agree wi
[2022-09-14 09:32] LABS: Basophils # 0.1 K/mm3 (0-0.2); Basophils % 1.6 % (0.1-2.0); Eosinophils # 0.2 K/mm3 (0.0-0.4); Eosinophils % 3.3 % (0.1-12.0); Hematocrit 30.9 % (42.0-52.0); Hemoglobin 10.6 g/dL (14.1-18.0); Lymphocytes % 20.5 % (10-50); Mean Corpuscular HGB Conc 34.2 g/dL (31.8-35.4); Mean Corpuscular Hemoglobin 29.7 pg (27.0-31.2); Mean Platelet Volume 8.9 fl (7.4-10.4); Monocytes # 0.3 K/mm3 (0.1-1.0); Monocytes % 6.3 % (1.7-9.3); Neutrophils # 3.2 K/mm3 (1.8-7.8); Neutrophils % 68.2 % (37.0-80.0); Platelet Count 406 K/mm3 (142-424); Red Blood Count 3.55 M/mm3 (4.60-6.20); Red Cell Distribution Width 13.9 % (11.5-17.5); White Blood Count 4.7 K/mm3 (4.8-10.8)
--- NOTE | 2022-09-14 09:38 | CARE MANAGER ---
Patient has lewy body dementia and is non ambulatory at this time. Chronically, he has limited mobility and requires assistance with bed mobility as well as transfers and ambulation. Patient is unable to set up in chair to eat meals at this time and will require a bed that spouse can raise head of bed more than 30 degrees. Patient will require frequent bed changes r/t incontinence as well as for comfort.
[2022-09-14 09:41] LABS: Chloride 99 mmol/L (98-107); Potassium 4.2 mmoL/L (3.5-5.1); Sodium 133 mmol/L (136-145)
[2022-09-14 09:44] LABS: Anion Gap 14.2 mEq/L (5-15); Blood Urea Nitrogen 9 mg/dl (9-20); Carbon Dioxide 24 mmol/L (22.0-30.0); Creatinine Clearance Estimated 65 mL/min (50-200); Estimated Glomerular Filt Rate 93 ml/min (>60); GFR (African American) 113 ML/MIN (>60)
[2022-09-14 09:45] LABS: Calcium 8.8 mg/dl (8.4-10.2); Glucose 283 mg/dl (74-100)
--- NOTE | 2022-09-14 10:15 | PC.NURSE ---
courtesy tech henry: pt is lying in bed sleeping.
[2022-09-14 11:25] LABS: POC Glucose,Bedside 245 (70-110)
--- NOTE | 2022-09-14 14:18 | CARE MANAGER ---
Patient discharged home today with services, which will be provided by [facility]. Hospital bed ordered from [facility], and was planned to be delivered prior to discharge. Sitters list given to spouse.
--- NOTE | 2022-09-18 22:49 | EXP.DC.SUM ---
General Admission date:: 09/10/22 Discharge date: 09/14/22 HPI HPI HPI: Mr. Owusu is a 77-year-old male patient with a history of type 2 diabetes mellitus, ulcerative colitis, dyslipidemia, paroxysmal atrial fib., Sleep apnea, hypertension, prostate cancer followed by Dr. Steward, Lewy body dementia followed by Dr. Bear, and acute renal failure requiring temporary dialysis in July 2022 at [place]. Following is the note from emergency room visit.: History of Present Illness HPI Narrative: progressive weakness over the last few days with assoc nonbldy diarrhea - pt was at neuro f/u and noted to be dizzyness and generalized weakness - MD Complaint: generalized weakness Onset (ago): day(s) Duration: constant Location: generalized Migration: none Severity: moderate Associated symptoms: denies other symptoms Further note from [facility]: patient was hospitalized at [facility] in June with COVID and general debilitation. From there he was discharged to [facility] in [place] for rehab. A few days after admission to the residential he became more lethargic and confused and was found to be in acute renal failure. He was then transferred to [facility] where he required temporary dialysis. The cause of the renal failure was not determined. After 10 days he was transferred back to [facility] for ongoing therapy and then was discharged home on 08/23/2022. Last creatinine was 0.9. With this visit to [facility] on 08/24/2022 the noted that his dementia had worsened. He was not making any progress with therapy and was unable to transfer independently. Appetite at this time was improving. He was having loose stools but was noted to be on 3 different bowel medications. He remained incontinent of urine. On this date his Flomax was discontinued as well as metformin and Tradjenta. He was continued with his Lantus and sliding scale. After admission to the floor patient became combative. He required some Ativan after which he became sedated. He does have mittens on. He will open his eyes and try to talk but mumbles. Information for HPI is obtained from records and ER visit. Hospital Course Hospital Course Hospital Course: The patient was admitted and started on Flagyl along with IV fluids and potassium chloride. He was started on sliding scale insulin for glucose control. He did have to receive some doses of Ativan as well. His stool panel was positive for C. difficile. He improved slowly and was able to stand and transfer at one-point, but was then unable to transfer back to his bed. Nursing staff had to use a lift to move him. Case management discussed discharge option with the patient's . He was also started on Protonix due to heme positive stool. By 09/14/2022, his had decided to take him home with home health. He was stable to be discharged home on continued Flagyl. He will follow up with Dr. Mathews in the office. Exam Data for Last 24 hours Vital signs and Labs for Last 24 Hours: Temp Pulse Resp BP Pulse Ox 98.8 F 84 18 137/74 99 09/14/22 08:00 09/14/22 08:00 09/14/22 08:00 09/14/22 08:00 09/14/22 08:00 Narrative: Constitutional Constitutional: no acute distress and somnolent (Arouses and will open his eyes.? He does try to talk but mumbles.? He then falls right back to sleep.) *Routine HEENT Exam Head: Present normocephalic and atraumatic Eye: Present PERRL; Absent conjunctival icterus, scleral injection or conjunctivae pink ENT: Present mucous membranes dry and oropharynx clear *Routine Neck Exam Neck: Absent carotid bruit, lymphadenopathy or thyromegaly *Routine Respiratory Exam Respiratory: Present CTA bilaterally *Routine Cardiovascular Exam Cardiovascular: Present RRR *Routine Abdominal Exam Abdominal: Present soft and normoactive bowel sounds; Absent distended or guarding *Routine Rectal Exam Rectal:: deferred
== END 2022-09-14 15:10 | disposition home health service (06) ==
LOC: ER 16:37 → 2ND 18:10
PROVIDERS: Admitting Provider Family Medicine; Emergency Provider Emergency Medicine; PCP Family Medicine; Visit Provider Family Medicine
DX: G20 Parkinson's disease; F02.811 Dementia in other diseases classified elsewhere, unspecified severity, with agitation; I10 Essential (primary) hypertension; G31.83 Neurocognitive disorder with Lewy bodies; A04.72 Enterocolitis due to Clostridium difficile, not specified as recurrent; E11.9 Type 2 diabetes mellitus without complications; D64.9 Anemia, unspecified; E43 Unspecified severe protein-calorie malnutrition; E87.6 Hypokalemia; Z68.21 Body mass index [BMI] 21.0-21.9, adult; Z20.822 Contact with and (suspected) exposure to COVID-19; I48.0 Paroxysmal atrial fibrillation; N17.9 Acute kidney failure, unspecified
CPT/HCPCS: G0378; 36415; 51702; 71045; 80048; 80053; 81001; 82272; 82962; 83735; 84484; 85025; 87506; 93005; 97163; 97166; 97530; 99285; C9803; G0328; U0003; U0005

== ENCOUNTER → 2022-09-20 14:08 | Outpatient (CLI) | payer MEDICARE, SELFPAY ==
[2022-09-20 18:32] LABS: Basophils # 0.1 K/mm3 (0-0.2); Basophils % 0.8 % (0.1-2.0); Eosinophils # 0.2 K/mm3 (0.0-0.4); Eosinophils % 2.8 % (0.1-12.0); Hematocrit 32.4 % (42.0-52.0); Hemoglobin 10.5 g/dL (14.1-18.0); Lymphocytes # 1.5 K/mm3 (0.7-4.5); Lymphocytes % 22.8 % (10-50); Mean Corpuscular HGB Conc 32.4 g/dL (31.8-35.4); Mean Corpuscular Hemoglobin 29.9 pg (27.0-31.2); Mean Corpuscular Volume 92.3 fl (80-94); Mean Platelet Volume 9.1 fl (7.4-10.4); Monocytes # 0.3 K/mm3 (0.1-1.0); Neutrophils # 4.5 K/mm3 (1.8-7.8); Neutrophils % 69.7 % (37.0-80.0); Platelet Count 357 K/mm3 (142-424); Red Blood Count 3.51 M/mm3 (4.60-6.20); Red Cell Distribution Width 14.2 % (11.5-17.5); White Blood Count 6.4 K/mm3 (4.8-10.8)
[2022-09-20 19:18] LABS: Anion Gap 18.7 mEq/L (5-15); Blood Urea Nitrogen 21 mg/dl (9-20); Calcium 9.1 mg/dl (8.4-10.2); Carbon Dioxide 22 mmol/L (22.0-30.0); Chloride 98 mmol/L (98-107); Estimated Glomerular Filt Rate 72 ml/min (>60); GFR (African American) 87 ML/MIN (>60); Glucose 307 mg/dl (74-100); Potassium 4.7 mmoL/L (3.5-5.1); Sodium 134 mmol/L (136-145)
== END ==
PROVIDERS: PCP Family Medicine; Visit Provider Family Medicine
DX: I10 Essential (primary) hypertension (principal)
CPT/HCPCS: 80048; 85025

== ENCOUNTER → 2023-07-12 08:09 | Outpatient (CLI) | payer MEDICARE, SELFPAY ==
[2023-07-12 09:10] LABS: Hemoglobin A1C 10.1 % (4.0-6.0)
[2023-07-12 10:47] LABS: Alanine Aminotransferase 21 U/L (12-78); Albumin Level 4.1 g/dl (3.5-5.0); Albumin/Globulin Ratio 1.2 (1.1-1.8); Alkaline Phosphatase 115 U/L (38-126); Anion Gap 14.6 mEq/L (5-15); Aspartate Amino Transferase 21 U/L (17-59); Bilirubin,Total 0.6 mg/dl (0.2-1.3); Blood Urea Nitrogen 23 mg/dl (9-20); Calcium 9.8 mg/dl (8.4-10.2); Carbon Dioxide 27 mmol/L (22.0-30.0); Chloride 101 mmol/L (98-107); Chol/HDL Ratio 2.8 (1-3.5); Cholesterol 139 mg/dl (140-200); Estimated Glomerular Filt Rate 58 ml/min (>60); GFR (African American) 71 ML/MIN (>60); Globulin 3.5 g/dL (1.3-3.2); Glucose 172 mg/dl (74-100); HDL Cholesterol 49 mg/dl (40-60); Potassium 4.6 mmoL/L (3.5-5.1); Sodium 138 mmol/L (136-145); Total Protein,Serum 7.6 g/dl (6.3-8.2); Triglycerides 67 mg/dl (30-150); VLDL Cholesterol 13 mg/dL (0-40)
[2023-07-12 10:58] LABS: Direct LDL Cholesterol 62.61 mg/dL (100-129)
== END ==
PROVIDERS: PCP Family Medicine; Visit Provider Family Medicine
DX: E11.9 Type 2 diabetes mellitus without complications (principal); E78.5 Hyperlipidemia, unspecified; Z79.4 Long term (current) use of insulin
CPT/HCPCS: 36415; 80053; 80061; 83036